=== PATIENT | male | born 1965 | race Caucasian/White ===

== ENCOUNTER 2018-05-09 20:06 | Inpatient (IN) ==
[2018-05-09] MEDS ORDERED: Labetalol HCl Inj 100 MG/20 ML Vial IV.PUSH ONE ×2 (21:31→23:12)
[2018-05-09] MEDS ORDERED: Labetalol HCl Inj 20 MG/4 ML Vial ONE (21:37)
--- NOTE | 2018-05-09 21:39 | ED ---
HPI General Chief complaint: Hypertension Stated complaint: Back pain, difficulty breathing Time Seen by Provider: 05/09/18 21:20 Source: patient Mode of arrival: ambulatory Limitations: no limitations History of Present Illness HPI narrative: 53-year-old male here for evaluation of elevated blood pressure, bilateral flank pain, abdominal pain. The patient reports that the symptoms have been going on since 05/04/18. He states that on that date [facility] and was reportedly told that he has an aortic aneurysm. He tells me that he left AMA yesterday because he thought that they could not get his blood pressure control and that he was "falling through the cracks." His symptoms have persisted and have been constant. His pain is described as sharp and radiates from his bilateral flank region to his bilateral groin region. He feels as though he needs to urinate frequently, however denies dysuria or hematuria. No urinary incontinence or bowel incontinence or retention. No fevers or chills. No paresthesias or motor deficits. He smokes about 3/4 of a pack of cigarettes daily, smokes marijuana occasionally, denies any other illicit drugs. States that he has not had any alcohol in the last 4 years. Related Data Home Medications Medication Instructions Recorded Confirmed No Known Home Medications 05/09/18 05/09/18 Allergies Allergy/AdvReac Type Severity Reaction Status Date / Time No Known Allergies Allergy Verified 05/09/18 21:00 Review of Systems ROS: all other systems reviewed are negative FOR[facility]LY [facility] Medical History Medical History High cholesterol (Acute) Hypertension (Acute) Patient denies medical problems (Acute) Surgical History Surgical History H/O inguinal hernia repair (Acute) Social History Social History Substance History: No History of Abuse Second Hand Smoke Exposure: No Smoking Status: Current every day smoker Tobacco Type: Cigarettes How Often Do You Have a Drink Containing Alcohol: Never Recent Travel in [facility] within the Last 8 Weeks: No Recent Out of Country Travel within the Last 8 Weeks: No Immunization History Tetanus Immunization: Unsure Exam Narrative Exam Narrative: GENERAL: Well-developed, well-nourished, awake, alert, resting comfortably on stretcher watching TV, no apparent distress. SKIN: Focused skin assessment warm/dry. No rash. HEAD: Atraumatic. Normocephalic. EYES: Pupils equal and round. No scleral icterus. No injection or drainage. ENT: Mucous membranes pink and moist. NECK: Trachea midline. No JVD. CARDIOVASCULAR: Regular rate and rhythm. Distal pulses brisk and equal bilaterally. RESPIRATORY: No accessory muscle use. Clear to auscultation. Breath sounds equal bilaterally. GASTROINTESTINAL: Abdomen soft, nondistended. Mild suprapubic and lower abdominal tenderness without peritoneal signs. Rest of abdomen is soft and nontender. Normal bowel sounds. No hernias. MUSCULOSKELETAL: No obvious deformities. No clubbing. No cyanosis. No edema. Mild CVA tenderness bilaterally. No midline vertebral step-off or tenderness. NEUROLOGICAL: Awake and alert. No obvious cranial nerve deficits. Motor grossly within normal limits. Normal speech. PSYCHIATRIC: Appropriate mood and affect; insight and judgment normal. Course Initial Documented Vital Signs Temperature 97.8 F 05/09/18 20:43 Pulse Rate 78 05/09/18 20:43 Respiratory Rate 17 05/09/18 20:43 Blood Pressure 227/103 H 05/09/18 20:43 Pulse Oximetry 97 05/09/18 20:43 Last Documented Vital Signs Temperature 97.8 F 05/09/18 20:43 Pulse Rate 68 05/09/18 23:16 Respiratory Rate 18 05/09/18 23:16 Blood Pressure 154/82 H 05/09/18 23:28 Pulse Oximetry 99 05/09/18 23:16 Critical Care Time Critical Care Time: Yes Total Critical Care Time: 35 Attestation: Aggregate critical care time was 35 minutes. Time to perform other separately billable procedures was not included in the critical care time. My time did not include minutes spent treating any other patients simultaneously or on activities that did not directly contribute to the patient's treatment. The services I provided to this patient were to treat and/or prevent clinically significant deterioration that could result in: , permanent disability, aortic rupture, hemorrhagic shock I provided critical care services requiring my management, as noted below: Chart data review, documentation time, medication orders and management, vital sign assessments/reviewing monitor data, ordering and reviewing lab tests, ordering and interpreting/reviewing x-rays and diagnostic studies, care of the patient and discussion of the patient with the admitting physicians. Medical Decision Making MDM Narrative Medical decision making narrative: Patient presents with a blood pressure of 237 /108 with a heart rate of 78. Basic labs reviewed. 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 angios the chest revealed a type B aortic dissection in the arch distal to the left subclavian artery extending inferiorly and into the abdominal aorta and a mild aneurysm involving the ascending aorta and aortic arch. According to these records, the patient was evaluated by cardiothoracic surgery, and medical management was advised. Unfortunately the patient decided to leave the facility AGAINST MEDICAL ADVICE yesterday, and therefore does not have antihypertensive medications. He was given 10 mg of IV labetalol shortly after I initially evaluated him, and repeat blood pressure is 189/95, and his heart rate is 70. Patient was given a second dose of 10 mg of IV labetalol and his repeat blood pressure is 154/82 with a heart rate of 65. I discussed the case with garment sewer hand Dr. Aceves who will admit the patient to the ICU. He would like me to repeat CT thoracic and abdominal aorta here. The patient was made aware of this plan and has agreed to not leave [place] as his diagnosis is life-threatening. Medical Screen Exam Complete: Yes Emergency Medical Condition: Yes Differential Diagnosis Differential Diagnosis: Uncontrolled hypertension, hypertensive crisis, dissection, AAA, nephrolithiasis, ureterolithiasis, pyelonephritis, renal artery infarct, colitis Lab Data Result diagrams: 05/09/18 21:39 05/09/18 21:39 Lab Results 05/09/18 05/09/18 05/09/18 Range/Units 21:39 21:39 21:39 WBC 9.4 (4.0-11.0) th/mm3 RBC 3.91 L (4.50-5.90) mil/mm3 Hgb 13.5 (13.0-17.0) gm/dL Hct 37.2 L (39.0-51.0) % MCV 95.2 (80.0-100.0) fL MCH 34.5 H (27.0-34.0) pg MCHC 36.2 H (32.0-36.0) % RDW 13.5 (11.6-17.2) % Plt Count 397 (150-450) th/mm3 MPV 7.8 (7.0-11.0) fL Prelim Diff (Auto) Slide review pending Neut % (Auto) 63.8 (16.0-70.0) % Lymph % (Auto) 16.8 (9.0-44.0) % [place] % (Auto) 12.1 H (0.0-8.0) % Eos % (Auto) 6.7 H (0.0-4.0) % Baso % (Auto) 0.6 (0.0-2.0) % Neut # (Auto) 6.0 (1.8-7.7) th/mm3 Lymph # (Auto) 1.6 (1.0-4.8) th/mm3 [place] # (Auto) 1.1 H (0.0-0.9) th/mm3 Eos # (Auto) 0.6 H (0.0-0.4) th/mm3 Baso # (Auto) 0.1 (0.0-0.2) th/mm3 Differential Comment . PT 10.3 (9.8-11.6) sec INR 1.0 Ratio APTT 31.6 (23.4-31.7) sec Sodium 136 (136-145) meq/L Potassium 3.5 (3.5-5.1) meq/L Chloride 102 (98-107) meq/L Carbon Dioxide 22.9 (21.0-32.0) meq/L Anion Gap 11 (5-15) meq/L BUN 11 (7-18) mg/dL Creatinine 1.02 (0.60-1.30) mg/dL Estimated GFR 76 L (>89) mL/min Random Glucose 72 L (74-106) mg/dL Calcium 8.8 (8.5-10.1) mg/dL Total Bilirubin 0.6 (0.2-1.0) mg/dL AST 15 (15-37) U/L ALT 28 (12-78) U/L Alkaline Phosphatase 80 (45-117) U/L Total Creatine Kinase 194 (39-308) U/L CK-MB (CK-2) 4.5 H (0.5-3.6) ng/mL Troponin I Less than 0.02 L (0.02-0.05) ng/mL Total Protein 7.7 (6.4-8.2) g/dL Albumin 3.5 (3.4-5.0) g/dL Lipase 66 L (73-393) U/L Urine Color (Yellw/Straw) Urine Clarity (Clear) Urine pH (5.0-8.5) Ur Specific [place] (1.002-1.035) Urine Protein (Neg-Trace) mg/dL Urine Glucose (UA) (Negative) mg/dL Urine Ketones (Negative) mg/dL Urine Occult Blood (Negative) Urine Nitrate (Negative) Urine Bilirubin (Negative) Urine Urobilinogen (Less than 2) mg/dL Ur Leukocyte Esterase (Negative) Urine RBC (0-3) /hpf Urine WBC (0-5) /hpf Micro UA Comment Ur Microscopic Review Urine Culture Comments Urine Opiates Screen (Neg) Ur Barbiturates Screen (Neg) Ur Amphetamines Screen (Neg) U Benzodiazepines Scrn (Neg) Urine Cocaine Screen (Neg) U Cannabinoids Screen (Neg) Serum Alcohol Less than 3 (0-5) mg/dL 05/09/18 05/09/18 Range/Units 21:39 21:39 WBC (4.0-11.0) th/mm3 RBC (4.50-5.90) mil/mm3 Hgb (13.0-17.0) gm/dL Hct (39.0-51.0) % MCV (80.0-100.0) fL MCH (27.0-34.0) pg MCHC (32.0-36.0) % RDW (11.6-17.2) % Plt Count (150-450) th/mm3 MPV (7.0-11.0) fL Prelim Diff (Auto) Neut % (Auto) (16.0-70.0) % Lymph % (Auto) (9.0-44.0) % [place] % (Auto) (0.0-8.0) % Eos % (Auto) (0.0-4.0) % Baso % (Auto) (0.0-2.0) % Neut # (Auto) (1.8-7.7) th/mm3 Lymph # (Auto) (1.0-4.8) th/mm3 [place] # (Auto) (0.0-0.9) th/mm3 Eos # (Auto) (0.0-0.4) th/mm3 Baso # (Auto) (0.0-0.2) th/mm3 Differential Comment PT (9.8-11.6) sec INR Ratio APTT (23.4-31.7) sec Sodium (136-145) meq/L Potassium (3.5-5.1) meq/L Chloride (98-107) meq/L Carbon Dioxide (21.0-32.0) meq/L Anion Gap (5-15) meq/L BUN (7-18) mg/dL Creatinine (0.60-1.30) mg/dL Estimated GFR (>89) mL/min Random Glucose (74-106) mg/dL Calcium (8.5-10.1) mg/dL Total Bilirubin (0.2-1.0) mg/dL AST (15-37) U/L ALT (12-78) U/L Alkaline Phosphatase (45-117) U/L Total Creatine Kinase (39-308) U/L CK-MB (CK-2) (0.5-3.6) ng/mL Troponin I (0.02-0.05) ng/mL Total Protein (6.4-8.2) g/dL Albumin (3.4-5.0) g/dL Lipase (73-393) U/L Urine Color Yellow (Yellw/Straw) Urine Clarity Clear (Clear) Urine pH 6.0 (5.0-8.5) Ur Specific [place] 1.012 (1.002-1.035) Urine Protein Negative (Neg-Trace) mg/dL Urine Glucose (UA) Negative (Negative) mg/dL Urine Ketones Trace H (Negative) mg/dL Urine Occult Blood Small H (Negative) Urine Nitrate Negative (Negative) Urine Bilirubin Negative (Negative) Urine Urobilinogen Less than 2 (Less than 2) mg/dL Ur Leukocyte Esterase Negative (Negative) Urine RBC 1 (0-3) /hpf Urine WBC 1 (0-5) /hpf Micro UA Comment Culture not ind Ur Microscopic Review Not Reportable Urine Culture Comments Culture not ind Urine Opiates Screen Neg (Neg) Ur Barbiturates Screen Neg (Neg) Ur Amphetamines Screen Neg (Neg) U Benzodiazepines Scrn Neg (Neg) Urine Cocaine Screen Neg (Neg) U Cannabinoids Screen Pos H (Neg) Serum Alcohol (0-5) mg/dL Discharge Plan Discharge Disposition Patient Disposition: ED Admit(ED Internal Use Only) Discharge Condition Condition: Fair Discharge Order Discharge Orders: ED Use Only Admit Order (Routine); Ordered 05/09/18 Ordered By: Gui Almendarez Discharge Details Diagnosis: Hypertensive crisis, Aortic dissection Physicians Team ED Provider: Gui Almendarez Primary Care Provider: Primary Care Physici,No Rxs /Orders / Referrals /Forms Prescriptions: No Action No Known Home Medications RF: 0 Discharge Interventions Interventions: Vital Signs Last Done: 05/09/18 21:01 Status ED Status: With Doctor
[2018-05-09 22:09] LABS: Baso # (Auto) 0.1 th/mm3 (0.0-0.2); Baso % (Auto) 0.6 % (0.0-2.0); Eos # (Auto) 0.6 th/mm3 (0.0-0.4); Eos % (Auto) 6.7 % (0.0-4.0); Hematocrit 37.2 % (39.0-51.0); Hemoglobin 13.5 gm/dL (13.0-17.0); Lymph # (Auto) 1.6 th/mm3 (1.0-4.8); Lymph % (Auto) 16.8 % (9.0-44.0); Mean Corpuscular Hemoglobin 34.5 pg (27.0-34.0); Mean Corpuscular Volume 95.2 fL (80.0-100.0); Mean Platelet Volume 7.8 fL (7.0-11.0); Mono # (Auto) 1.1 th/mm3 (0.0-0.9); Mono % (Auto) 12.1 % (0.0-8.0); Neut % (Auto) 63.8 % (16.0-70.0); Platelet Count 397 th/mm3 (150-450); Red Blood Count 3.91 mil/mm3 (4.50-5.90); Red Cell Distribution Width 13.5 % (11.6-17.2); White Blood Count 9.4 th/mm3 (4.0-11.0)
[2018-05-09 22:10] LABS: Bilirubin,Urine Negative (Negative); Clarity,Urine Clear (Clear); Color,Urine Yellow (Yellw/Straw); Glucose,Urine (UA) Negative (Negative); Leukocyte Esterase,Urine Negative (Negative); Nitrite,Urine Negative (Negative); Specific Gravity,Urine 1.012 (1.002-1.035)
[2018-05-09 22:15] LABS: Mean Corpuscular HGB Conc 36.2 % (32.0-36.0)
[2018-05-09 22:16] LABS: Amphetamine Screen,Urine Neg (Neg); Barbiturate Screen,Urine Neg (Neg); Cannabinoid Screen,Urine Pos (Neg); Cocaine Screen,Urine Neg (Neg)
[2018-05-09 22:17] LABS: Opiate Screen,Urine Neg (Neg)
[2018-05-09 22:20] LABS: Albumin 3.5 g/dL (3.4-5.0); Anion Gap 11 meq/L (5-15); Aspartate Aminotransferase 15 U/L (15-37); Blood Urea Nitrogen 11 mg/dL (7-18); Calcium 8.8 mg/dL (8.5-10.1); Carbon Dioxide 22.9 meq/L (21.0-32.0); Chloride 102 meq/L (98-107); Glomerular Filtration Rate 76 mL/min (>89); Glucose,Random 72 mg/dL (74-106); Lipase 66 U/L (73-393); Potassium 3.5 meq/L (3.5-5.1); Sodium 136 meq/L (136-145)
[2018-05-09 22:21] LABS: Alanine Aminotransferase 28 U/L (12-78)
[2018-05-09 22:25] LABS: Alkaline Phosphatase 80 U/L (45-117); Creatine Kinase 194 U/L (39-308); Total Protein 7.7 g/dL (6.4-8.2)
[2018-05-09 22:31] LABS: Activated Partial Thrombo Time 31.6 sec (23.4-31.7); Prothrombin Time 10.3 sec (9.8-11.6)
[2018-05-09 22:51] LABS: Creatine Kinase MB 4.5 ng/mL (0.5-3.6)
[2018-05-09] MEDS ORDERED: Bisacodyl 10 MG Supp RECTAL PRN (23:27)
[2018-05-09] MEDS ORDERED: fentaNYL Citrate Inj 100 MCG/2 ML Ampul IV PUSH PRN (23:27)
[2018-05-09] MEDS ORDERED: Labetalol HCl Inj 20 MG/4 ML Vial IV.PUSH PRN (23:32)
[2018-05-09 23:35] LABS: Platelet Estimate Normal (Normal)
[2018-05-09 23:36] LABS: Platelet Morphology Normal (Normal)
[2018-05-09] MEDS ORDERED: Potassium Chloride Liq 20 MEQ/15 ML UDC PO PRN ×2 (23:46)
[2018-05-09] MEDS ORDERED: Potassium Chlor 40 mEq Premix 40 MEQ/100 ML PIGGYBACK IV.SIG PRN ×2 (23:46)
[2018-05-09] MEDS ORDERED: Sodium Phosphate Inj 30 MMOL in Sodium Chlor 0.9% Inj 250 ML IV.SIG PRN (23:46)
[2018-05-09] MEDS ORDERED: Potassium Phosphate Inj 30 MMOL in Sodium Chlor 0.9% Inj 250 ML IV.SIG PRN (23:46)
[2018-05-09] MEDS ORDERED: Potassium Phosphate 500 MG Soluble Tablet PO PRN ×2 (23:46)
[2018-05-09] MEDS ORDERED: Magnesium Oxide 400 MG Tablet PO PRN (23:46)
[2018-05-09] MEDS ORDERED: Potassium Chlor 20 mEq Premix 20 MEQ/100 ML PIGGYBACK IV.SIG PRN ×2 (23:46)
[2018-05-09] MEDS ORDERED: Magnesium Sulfate Inj 2 GM in Sodium Chlor 0.9% Inj 96 ML IV.SIG PRN (23:46)
[2018-05-09] MEDS ORDERED: Magnesium Sulfate Inj 4 GM in Sodium Chlor 0.9% Inj 92 ML IV.SIG PRN (23:46)
--- NOTE | 2018-05-09 23:47 | P.HPCC ---
History of Present Illness Service: Critical care Primary Care Physician: No Primary Care Physician Chief Complaint: Uncontrolled hypertension History of Present Illness: Patient is 53-year-old male here with past medical history significant for hypertension, dyslipidemia recently diagnosed type B aortic dissection (on ) who presented to the emergency department today for evaluation of elevated blood pressure, and back pain. The patient stated that he was admitted to the [facility] from 05/04/18 for similar complaints and had been diagnosed with hypertensive emergency and type B dissection of the aorta. Records from [facility] reviewed, CT of the chest abdomen pelvis showed aortic dissection involving the thoracic and abdominal aorta extending from distal arch, distal to the origin of left subclavian artery to the left common iliac artery. CT surgery was consulted at [facility] and recommended medical management. He left AMA yesterday because in his opinion his blood pressure and pain was not adequately controlled. Initial blood pressures in the ED was 227/103. Patient was given 20 mg IV labetalol. Because of uncontrolled hypertension and recent type B dissection critical care medicine was requested to admit the patient. I evaluated the patient in the ED. His blood pressure is slightly better controlled however patient appears in obvious discomfort due to pain. He will be admitted to the ICU started on Cardene infusion along with PRN and scheduled labetalol. Cardiothoracic surgery will be reconsulted after getting aortic CT angiogram repeated. - Diagnosis (1) Dissecting aneurysm of thoracic aorta, Lam type B (2) Hypertensive emergency (3) Hypertension (4) Dyslipidemia Inpatient Certification: I certify that the inpatient services were ordered in accordance with Medicare regulations governing the order. This includes certification that hospital inpatient services are reasonable and necessary and in the case of services not specified as inpatient-only under 42 CFR 419.22(n), that they are appropriately provided as inpatient services in accordance to with the 2-midnight benchmark under 43 CFR 412.3(e) Estimated Total Length of Stay (Days): 5 Plans for Post Hospital Care: Not yet determined Review of Systems All other systems reviewed negative except as stated [facility] - History History Provided By: Patient - Medical History Medical History: Medical History (Last Reviewed 05/10/18 @ 01:44 by Shabnam Aceves MD) High cholesterol Hypertension Patient denies medical problems - Surgical History Surgical History: Surgical History (Last Reviewed 05/09/18 @ 23:50 by Shabnam Aceves MD) H/O inguinal hernia repair - Tobacco History Second Hand Smoke Exposure: No Tobacco Use In Past 30 Days: Yes Smoking Status: Current every day smoker Tobacco Type: Cigarettes - Alcohol History How Often Do You Have a Drink Containing Alcohol: Never - Substance Use History Substance History: No History of Abuse - Travel History Recent Travel in the [place] Within the Last 8 Weeks: No Recent Travel Out of the Country Within the Last 8 Weeks: No - Immunization History Tetanus Immunization: Unsure Medications and Allergies Active Medications: Active Medications Hydrocodone Bitart/Acetaminophen ([place] 7.5/325) 2 tab PO Q6H PRN PRN Reason: pain 5-10 Al Hydroxide/Mg Hydroxide (Milk Of Magnesia Liq) 30 ml PO Q12H PRN PRN Reason: Mild Constipation Albuterol (Duoneb Neb (Prn)) 1 ampul NEB Q2HR NEB PRN PRN Reason: WHEEZING Bisacodyl (Dulcolax Supp) 10 mg RECTAL DAILY PRN PRN Reason: SEVERE CONSITIPATION Chlorhexidine Gluconate (Chlorhexidine 2% Cloth) 3 pack TOPICAL DAILY@0400 VA Stop: 05/15/18 03:59 Chlorhexidine Gluconate (Chlorhexidine 2% Cloth) 3 pack TOPICAL DAILY@0400 PRN PRN Reason: Extra cloth needed Stop: 05/15/18 03:59 Famotidine (Pepcid) 20 mg PO BID VA Famotidine (Pepcid Pf Inj) 20 mg IV.PUSH Q12HR VA Fentanyl Citrate (Fentanyl Inj) 50 mcg IV PUSH Q1H PRN PRN Reason: Pain scale 6-10, &/or sedation Nicardipine HCl 25 mg/ Sodium (Chloride) 250 mls @ 50 mls/hr IV.CONT TITRATE PRN; Protocol PRN Reason: Per Protocol Magnesium Sulfate 4 gm/ Sodium (Chloride) 100 mls @ 50 mls/hr IV.SIG UNSCH PRN PRN Reason: For Magnesium 0.9 - 1.1 mg/dL Magnesium Sulfate 2 gm/ Sodium (Chloride) 100 mls @ 50 mls/hr IV.SIG UNSCH PRN PRN Reason: For Magnesium 1.2 - 1.6 mg/dL Potassium Chloride (Kcl 40 Meq Premix Inj) 40 meq in 100 mls @ 25 mls/hr IV.SIG Q2H PRN PRN Reason: For Potassium 2.8 - 3.2 mEq/L Potassium Chloride (Kcl 20 Meq Premix Inj) 20 meq in 100 mls @ 50 mls/hr IV.SIG Q2H PRN PRN Reason: For Potassium 3.3 - 3.5 mEq/L Potassium Chloride (Kcl 40 Meq Premix Inj) 40 meq in 100 mls @ 25 mls/hr IV.SIG UNSCH PRN PRN Reason: For Potassium 3.3 - 3.5 mEq/L Labetalol HCl (Trandate Inj) 20 mg IV.PUSH Q2H PRN PRN Reason: SBP >160 Labetalol HCl (Trandate) 100 mg PO BID VA Lactulose (Lactulose Liq) 30 ml PO DAILY PRN PRN Reason: SEVERE CONSITIPATION Magnesium Oxide (Mag-Ox) 800 mg PO UNSCH PRN PRN Reason: For Magnesium 1.2 - 1.6 mg/dL Senna/Docusate Sodium (Rose-Colace) 1 tab PO BID VA Sennosides (Senokot) 17.2 mg PO Q12H PRN PRN Reason: Moderate Constipation Sodium Chloride (Ns Flush) 2 ml IV.FLUSH UNSCH PRN PRN Reason: FLUSH AFTER USING IV ACCESS Sodium Chloride (Ns Flush) 2 ml IV.FLUSH BID VA Sodium Chloride (Ns Flush) 2 ml IV.FLUSH PRN PRN PRN Reason: FLUSH AFTER USING IV ACCESS Allergies Allergy/AdvReac Type Severity Reaction Status Date / Time No Known Allergies Allergy Verified 05/09/18 21:00 Home Medications Medication Instructions Recorded Confirmed Type No Known Home Medications 05/09/18 05/09/18 History Results - Labs CBC & Chem 7: 05/09/18 21:39 05/09/18 21:39 Labs: Short CBC 05/09/18 Range/Units 21:39 WBC 9.4 (4.0-11.0) th/mm3 Hgb 13.5 (13.0-17.0) gm/dL Hct 37.2 L (39.0-51.0) % Plt Count 397 (150-450) th/mm3 BMP 05/09/18 21:39 Sodium 136 Potassium 3.5 Chloride 102 Carbon Dioxide 22.9 BUN 11 Creatinine 1.02 Calcium 8.8 Cardiac Enzymes 05/09/18 Range/Units 21:39 Total Creatine Kinase 194 (39-308) U/L CK-MB (CK-2) 4.5 H (0.5-3.6) ng/mL Troponin I Less than 0.02 L (0.02-0.05) ng/mL Liver Function 05/09/18 Range/Units 21:39 Total Bilirubin 0.6 (0.2-1.0) mg/dL AST 15 (15-37) U/L ALT 28 (12-78) U/L Alkaline Phosphatase 80 (45-117) U/L Albumin 3.5 (3.4-5.0) g/dL Urine 05/09/18 Range/Units 21:39 Urine Color Yellow (Yellw/Straw) Urine Clarity Clear (Clear) Urine pH 6.0 (5.0-8.5) Ur Specific [place] 1.012 (1.002-1.035) Urine Protein Negative (Neg-Trace) mg/dL Urine Glucose (UA) Negative (Negative) mg/dL Exam Vital signs: Vital Signs 05/09/18 20:43 05/09/18 21:01 05/09/18 21:42 Temperature 97.8 F Pulse Rate 78 78 68 Respiratory Rate 17 18 18 Blood Pressure 227/103 H 219/101 H 191/101 H Pulse Oximetry 97 97 99 05/09/18 22:17 05/09/18 22:25 05/09/18 22:55 Temperature Pulse Rate 68 70 Respiratory Rate 18 18 Blood Pressure 177/88 H 191/92 H 212/102 H Pulse Oximetry 98 98 05/09/18 23:16 05/09/18 23:28 Temperature Pulse Rate 68 Respiratory Rate 18 Blood Pressure 163/81 H 154/82 H Pulse Oximetry 99 Narrative: GENERAL: Well-developed, well-nourished, awake, alert, moderate distress due to back pain SKIN: Warm and dry HEAD: Atraumatic. Normocephalic. EYES: Pupils equal and round. No scleral icterus. No injection or drainage. ENT: Mucous membranes pink and moist. NECK: Trachea midline. No JVD. CARDIOVASCULAR: Regular rate and rhythm. Distal pulses equal bilaterally. No murmurs RESPIRATORY: No accessory muscle use. Clear to auscultation. GASTROINTESTINAL: Abdomen soft, nondistended. No organomegaly MUSCULOSKELETAL: No obvious deformities. No clubbing. No cyanosis. No edema. NEUROLOGICAL: Awake and alert. No obvious cranial nerve deficits. Motor grossly within normal limits. Normal speech. Septic Shock Reassessment Septic shock perfusion: reassessment completed Caprini VTE Risk Assessment Caprini VTE Risk Assessment: Moderate/High Risk (score >= 2) VTE Pharmacological Exception Reason: High risk for bleeding Caprini Risk Assessment Model: Point Value = 1 Point Value = 2 Point Value = 3 Point Value = 5 Age 41-60 Minor surgery BMI > 25 kg/m2 Swollen legs Varicose veins or History of unexplained or recurrent spontaneous Oral contraceptives or hormone replacement Sepsis (< 1 month) Serious lung disease, including pneumonia (< 1 month) Abnormal pulmonary function Acute myocardial infarction Congestive heart failure (< 1 month) History of inflammatory bowel disease Medical patient at bed rest Age 61-74 Arthroscopic surgery Major open surgery (> 45 min) Laparoscopic surgery (> 45 min) Malignancy Confined to bed (> 72 hours) Immobilizing plaster cast Central venous access Age >= 75 History of VTE Family history of VTE Factor V Leiden Prothrombin [id number] Lupus anticoagulant Anticardiolipin antibodies Elevated serum homocysteine Heparin-induced thrombocytopenia Other congenital or acquired thrombophilia Stroke (< 1 month) Elective arthroplasty Hip, pelvis, or leg fracture Acute spinal cord injury (< 1 month) Prophylaxis Regimen: Total Risk Factor Score Risk Level Prophylaxis Regimen 0-1 Low Early ambulation 2 Moderate Order ONE of the following: *Sequential Compression Device (SCD) *Heparin 5000 units SQ BID 3-4 Higher Order ONE of the following medications: *Heparin 5000 units SQ TID *Enoxaparin/Lovenox 40 mg SQ daily (WT < 150 kg, CrCl > 30 mL/min) *Enoxaparin/Lovenox 30 mg SQ daily (WT < 150 kg, CrCl > 10-29 mL/min) *Enoxaparin/Lovenox 30 mg SQ BID (WT < 150 kg, CrCl > 30 mL/min) AND/OR *Sequential Compression Device (SCD) 5 or more Highest Order ONE of the following medications: *Heparin 5000 units SQ TID (Preferred with Epidurals) *Enoxaparin/Lovenox 40 mg SQ daily (WT < 150 kg, CrCl > 30 mL/min) *Enoxaparin/Lovenox 30 mg SQ daily (WT < 150 kg, CrCl > 10-29 mL/min) *Enoxaparin/Lovenox 30 mg SQ BID (WT < 150 kg, CrCl > 30 mL/min) AND *Sequential Compression Device (SCD) Assessment and Plan - Problem List (1) Dissecting aneurysm of thoracic aorta, Lam type B Code(s): I71.01 - Dissection of thoracic aorta Status: Acute (2) Hypertensive emergency Code(s): I16.1 - Hypertensive emergency Status: Acute (3) Hypertension Code(s): I10 - Essential (primary) hypertension Status: Chronic (4) Dyslipidemia Code(s): E78.5 - Hyperlipidemia, unspecified Status: Chronic - Assessment and Plan Plan: NEURO: -Pain controlled with [place] and IV fentanyl -Check urine drug screen RESP: -DuoNeb every 6 hours as needed -Tobacco cessation counseling CV: Hypertensive emergency Type B aortic dissection History of hypertension History of dyslipidemia -Normal saline IV fluids 75 mL/h -CT surgery consult -Repeat CT angiogram of the aorta -Previous CT angiogram showed type B dissection involving descending aorta distal to the arch extending into the abdominal aorta -Cardene infusion to keep systolic blood pressure less than 140/90 -Labetalol 100 mg p.o. twice daily, IV labetalol PRN for SBP more than 150 -Check lipid profile GI: -N.p.o., IV famotidine : -Monitor renal function closely. ID: -No indication for antibiotics at this HEME: -Monitor CBC, coags ENDO: -Electrolyte replacement per protocol PROPH: -Bilateral lower extremity SCDs. IV famotidine. Avoid chemical DVT prophylaxis LINES: -Utilize peripheral IVs, central line if needed CC time 37 min
--- NOTE | 2018-05-10 00:44 | CT ---
EXAM DATE: 05/10/2018 12:27 AM EST AGE/SEX: 53 years / Male INDICATIONS: Chest pain; possible dissection. CLINICAL DATA: This is the patient's initial encounter. Patient reports that signs and symptoms have been present for 1 day and indicates a pain score of 8/10. MEDICAL/SURGICAL HISTORY: Hypertension. Hypercholesterolemia. Inguinal hernia repair. RADIATION DOSE: 9.09 CTDI (mGy) COMPARISON: No prior exams available for comparison. TECHNIQUE: Volumetric scanning was performed using a multi-row detector CT scanner during bolus infu yfn of 98 ml Omnipaque 350 (iohexol) nonionic water-soluble contrast as a single exam dose. The da ta was post processed with a variety of visualization algorithms including full volume maximum intens ity projection, multi-planar sliding thin slab reformation, curved planar reformation, and surface re ndering techniques. Using automated exposure control and adjustment of the mA and/or kV according to patient size, radiation dose was kept as low as reasonably achievable to obtain optimal diagnostic q uality images. DICOM format image data is available electronically for review and comparison. FINDINGS: The descending thoracic aorta is normal in caliber and appearance. Classical three-vessel arch branch ing anatomy is present in the arch vessels are intact and unremarkable. Aortic dissection begins just beyond the origin of the left subclavian artery. The true lumen channel is fairly diminutive in the proximal descending thoracic region. In the abdomen, the celiac, SMA and renal arteries arise from th e true lumen. There is moderate proximal stenotic disease in the renal arteries bilaterally. The aort ic true lumen becomes quite small in the distal abdominal aorta and the LUBNA arises from the false lum en. The right iliac arises from the true lumen and continues widely patent through the right pelvis. On the left side, the true lumen occludes in the mid common region with flow continuing into the inte rnal and external iliacs at false lumen opacity. There is no evidence of aneurysmal dilatation. Elsewhere on the exam, note is made of mild hepatic steatosis. Bilateral renal cysts are present. The re is diverticular involvement of the colon. Fat-containing inguinal hernias present bilaterally. CONCLUSION: [place] type B aortic dissection with characteristics as described in detail above.. Electronically signed by: Ketan Brown MD Board Certified Radiologist 05/10/2018 12:42 AM EST
[2018-05-10] MEDS: niCARdipine Inj 25 MG in Sodium Chlor 0.9% Inj 240 ML IV.CONT PRN ×5 (00:49→19:43)
[2018-05-10] MEDS ORDERED: Chlorhexidine Gluconate 2% 1 Pack (2 Cloths) TOPICAL PRN (04:00)
[2018-05-10] MEDS: Chlorhexidine Gluconate 2% 1 Pack (2 Cloths) TOPICAL SCH (04:00)
[2018-05-10 04:53] LABS: Baso # (Auto) 0.1 th/mm3 (0.0-0.2); Baso % (Auto) 0.7 % (0.0-2.0); Eos # (Auto) 0.6 th/mm3 (0.0-0.4); Eos % (Auto) 6.7 % (0.0-4.0); Hematocrit 34.9 % (39.0-51.0); Hemoglobin 12.5 gm/dL (13.0-17.0); Lymph # (Auto) 1.4 th/mm3 (1.0-4.8); Lymph % (Auto) 16.6 % (9.0-44.0); Mean Corpuscular HGB Conc 35.7 % (32.0-36.0); Mean Corpuscular Volume 95.1 fL (80.0-100.0); Mean Platelet Volume 7.6 fL (7.0-11.0); Mono % (Auto) 12.8 % (0.0-8.0); Neut # (Auto) 5.2 th/mm3 (1.8-7.7); Neut % (Auto) 63.2 % (16.0-70.0); Platelet Count 362 th/mm3 (150-450); Red Blood Count 3.67 mil/mm3 (4.50-5.90); Red Cell Distribution Width 13.2 % (11.6-17.2); White Blood Count 8.2 th/mm3 (4.0-11.0)
[2018-05-10 05:41] LABS: Alanine Aminotransferase 26 U/L (12-78); Albumin 3.2 g/dL (3.4-5.0); Anion Gap 6 meq/L (5-15); Aspartate Aminotransferase 15 U/L (15-37); Blood Urea Nitrogen 13 mg/dL (7-18); Calcium 8.4 mg/dL (8.5-10.1); Carbon Dioxide 27.9 meq/L (21.0-32.0); Chloride 103 meq/L (98-107); Glomerular Filtration Rate 63 mL/min (>89); Glucose,Random 83 mg/dL (74-106); Magnesium 2.2 mg/dL (1.5-2.5); Potassium 3.4 meq/L (3.5-5.1); Sodium 137 meq/L (136-145)
[2018-05-10 05:43] LABS: Alkaline Phosphatase 76 U/L (45-117); Total Protein 7.1 g/dL (6.4-8.2)
[2018-05-10] MEDS ORDERED: Labetalol 100 MG Tablet PO SCH ×2 (09:00→21:00)
[2018-05-10] MEDS ORDERED: Famotidine PF Inj 20 MG/2 ML Vial IV.PUSH SCH (09:00)
[2018-05-10] MEDS ORDERED: Famotidine 20 MG Tablet PO SCH (09:00)
[2018-05-10] MEDS: Senna/Docusate Sodium 8.6/50 MG Tablet PO SCH ×2 (09:31→21:30)
--- NOTE | 2018-05-10 10:35 | P.PNCC ---
Subjective Subjective Remarks/Hospital Course: Patient is 53-year-old male here with past medical history significant for hypertension, dyslipidemia recently diagnosed type B aortic dissection (on ) who presented to the emergency department today for evaluation of elevated blood pressure, and back pain. The patient stated that he was admitted to the [facility] from 05/04/18 for similar complaints and had been diagnosed with hypertensive emergency and type B dissection of the aorta. Records from [facility] reviewed, CT of the chest abdomen pelvis showed aortic dissection involving the thoracic and abdominal aorta extending from distal arch, distal to the origin of left subclavian artery to the left common iliac artery. CT surgery was consulted at [facility] and recommended medical management. He left AMA yesterday because in his opinion his blood pressure and pain was not adequately controlled. Initial blood pressures in the ED was 227/103. Patient was given 20 mg IV labetalol. Because of uncontrolled hypertension and recent type B dissection critical care medicine was requested to admit the patient. I evaluated the patient in the ED. His blood pressure is slightly better controlled however patient appears in obvious discomfort due to pain. He will be admitted to the ICU started on Cardene infusion along with PRN and scheduled labetalol. Cardiothoracic surgery will be reconsulted after getting aortic CT angiogram repeated. Subjective 05/10: Patient resting in bed in no acute distress. States his "back pain" is much improved. Blood pressure much improved on nicardipine drip. Requesting diet. Objective Vital Signs / I&O: Vital Signs 05/09/18 20:43 05/09/18 21:01 05/09/18 21:42 Temperature 97.8 F Pulse Rate 78 78 68 Respiratory Rate 17 18 18 Blood Pressure 227/103 H 219/101 H 191/101 H Pulse Oximetry 97 97 99 05/09/18 22:17 05/09/18 22:25 05/09/18 22:55 Temperature Pulse Rate 68 70 Respiratory Rate 18 18 Blood Pressure 177/88 H 191/92 H 212/102 H Pulse Oximetry 98 98 05/09/18 23:16 05/09/18 23:28 05/09/18 23:57 Temperature Pulse Rate 68 69 Respiratory Rate 18 18 Blood Pressure 163/81 H 154/82 H 161/84 H Pulse Oximetry 99 98 05/10/18 00:27 05/10/18 01:00 05/10/18 03:00 Temperature 98.5 F 98.1 F Pulse Rate 68 62 Respiratory Rate 20 16 16 Blood Pressure 165/100 H 143/72 H Pulse Oximetry 95 95 05/10/18 04:00 05/10/18 09:37 Temperature Pulse Rate Respiratory Rate 16 18 Blood Pressure Pulse Oximetry Intake & Output 05/09/18 05/10/18 05/10/18 18:59 06:59 18:59 Intake Total 250 / 250 250 / 250 Balance 250 / 250 250 / 250 Weight 92.5 kg Intake: IV 250 / 250 250 / 250 Cardene Inj 25 MG In NS Inj 240 250 / 250 250 / 250 ML @ 5 MG/HR 50 mls/hr IV.CONT TITRATE PRN Rx#:[id number] Other: Weight On Admission 92.5 kg Result Diagrams: 05/10/18 03:25 05/10/18 03:25 Imaging: Thoracic Aorta CT 05/09/18 23:27 CONCLUSION: [place] type B aortic dissection with characteristics as described in detail above.. Objective Remarks: GENERAL: He is a 53-year-old male currently resting in bed in no acute distress SKIN: Warm and dry. HEAD: Atraumatic. Normocephalic. EYES: Pupils equal and round. No scleral icterus. No injection or drainage. ENT: No nasal bleeding or discharge. Mucous membranes pink and moist. NECK: Trachea midline. No JVD. CARDIOVASCULAR: Regular rate and rhythm. S1, S2. No S4. RESPIRATORY: No accessory muscle use. Clear to auscultation. Breath sounds equal bilaterally. GASTROINTESTINAL: Abdomen soft, non-tender, nondistended. MUSCULOSKELETAL: Extremities without clubbing, cyanosis, or edema. No obvious deformities. NEUROLOGICAL: Awake and alert. No obvious cranial nerve deficits. Motor grossly within normal limits. Five out of 5 muscle strength in the arms and legs. Normal speech. PSYCHIATRIC: Appropriate mood and affect; insight and judgment normal. Assessment and Plan - Problem List (1) Dissecting aneurysm of thoracic aorta, [place] type B Code(s): I71.01 - Dissection of thoracic aorta Status: Acute (2) Hypertensive emergency Code(s): I16.1 - Hypertensive emergency Status: Acute (3) Hypertension Code(s): I10 - Essential (primary) hypertension Status: Chronic (4) Dyslipidemia Code(s): E78.5 - Hyperlipidemia, unspecified Status: Chronic - Assessment and Plan Plan: NEURO/Psych: Cannabinoids use -Pain controlled with hydrocodone/acetaminophen 7.5/325 2 tablets every 6 hours as needed and IV fentanyl 50 mcg q. one hour -Check urine drug screen -positive cannabinoids RESP: Tobaccoism -Nasal cannula to maintain saturations greater than equal to 92% -Incentive spirometry while awake -Albuterol aerosols every 2 hours as needed -Tobacco cessation counseling CV: Hypertensive emergency Type B aortic dissection History of hypertension History of dyslipidemia -Normal saline IV fluids 75 mL/h -CT surgery consult -Repeat CT angiogram of the aortaAortic dissection begins just beyond the origin of the left subclavian artery. The true lumen channel is fairly diminutive in the proximal descending thoracic region. In the abdomen, the celiac, SMA and renal arteries arise from the true lumen. There is moderate proximal stenotic disease in the renal arteries bilaterally. The aortic true lumen becomes quite small in the distal abdominal aorta and the LUBNA arises from the false lumen. The right iliac arises from the true lumen and continues widely patent through the right pelvis. On the left side, the true lumen occludes in the mid common region with flow continuing into the internal and external iliacs at false lumen opacity. There is no evidence of aneurysmal dilatation. -Previous CT angiogram showed type B dissection involving descending aorta distal to the arch extending into the abdominal aorta -Nicardipine infusion to keep systolic blood pressure less than 140/90 -Labetalol 200 mg p.o. twice daily, IV labetalol 10 mg IV every hour PRN for SBP more than 150. Add amlodipine 5 mg daily starting tomorrow. 2.5 mg today -Check lipid profile GI: Hypoalbuminemia -N.p.o until evaluated by CT surgery -Pantoprazole for GI prophylaxis -Docusate sodium/senna 1 tablet twice daily for bowel regimen Renal/: -Monitor renal function closely. -Accurate I's and O's ID: -No indication for antibiotics at this HEME: Normocytic anemia -Monitor CBC, coags FEN/ENDO: Hypokalemia -Electrolyte replacement per protocol PROPH: -Bilateral lower extremity SCDs. IV famotidine. 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 CARE plan discussed questions answered (3) Hypertension Qualifiers: Hypertension type: unspecified Qualified Code(s): I10 - Essential (primary) hypertension
[2018-05-10] MEDS ORDERED: Labetalol 100 MG Tablet PO ONE (10:36)
[2018-05-10] MEDS ORDERED: amLODIPine 5 MG Tablet PO ONE (10:36)
--- NOTE | 2018-05-10 12:51 | P.CONVS ---
History of Present Illness Service: Vascular surgery Consult date: 05/10/18 Primary Care Provider: No Primary Care Physician Chief Complaint: Uncontrolled hypertension History of Present Illness: 53-year-old male with a past medical history of hypertension who presented to [facility] approximately 5 days ago with a chief complaint of chest pain radiating to the back. Patient was diagnosed with type B dissection and was treated conservatively. Patient left [facility] AGAINST MEDICAL ADVICE because they failed to control his blood pressure and his chest pain. He was admitted to [facility] last night with a consultation to Dr. Marmolejo who contacted me this morning to evaluate the patient. Patient currently denies any chest pain since his blood pressure has been controlled. He denies any abdominal pain or lower extremity pain. [facility] - History History Provided By: Patient - Medical History Medical History: Medical History (Last Reviewed 05/10/18 @ 01:44 by Shabnam Aceves MD) High cholesterol Hypertension Patient denies medical problems - Surgical History Surgical History: Surgical History (Last Reviewed 05/09/18 @ 23:50 by Shabnam Aceves MD) H/O inguinal hernia repair - Tobacco History Second Hand Smoke Exposure: No Tobacco Use In Past 30 Days: Yes Smoking Status: Current every day smoker Tobacco Type: Cigarettes - Alcohol History How Often Do You Have a Drink Containing Alcohol: Never - Substance Use History Substance History: No History of Abuse - Travel History Recent Travel in the [place] Within the Last 8 Weeks: No Recent Travel Out of the Country Within the Last 8 Weeks: No - Immunization History Tetanus Immunization: Unsure Hx Influenza Vaccine This Season: No Medications and Allergies Active Medications: Active Medications Hydrocodone Bitart/Acetaminophen ([place] 7.5/325) 2 tab PO Q6H PRN PRN Reason: pain 5-10 Last Admin: 05/10/18 08:00 Dose: 2 tab Al Hydroxide/Mg Hydroxide (Milk Of Matthias Liq) 30 ml PO Q12H PRN PRN Reason: Mild Constipation Albuterol (Albuterol Neb (Prn)) 2.5 mg NEB Q4HR NEB PRN PRN Reason: DYSPNEA Amlodipine Besylate (Norvasc) 5 mg PO DAILY VA Bisacodyl (Dulcolax Supp) 10 mg RECTAL DAILY PRN PRN Reason: SEVERE CONSITIPATION Chlorhexidine Gluconate (Chlorhexidine 2% Cloth) 3 pack TOPICAL DAILY@0400 [facility] Stop: 05/15/18 03:59 Last Admin: 05/10/18 04:00 Dose: 3 pack Chlorhexidine Gluconate (Chlorhexidine 2% Cloth) 3 pack TOPICAL DAILY@0400 PRN PRN Reason: Extra cloth needed Stop: 05/15/18 03:59 Fentanyl Citrate (Fentanyl Inj) 50 mcg IV PUSH Q1H PRN PRN Reason: Pain scale 6-10, &/or sedation Nicardipine HCl 25 mg/ Sodium (Chloride) 250 mls @ 50 mls/hr IV.CONT TITRATE PRN; Protocol PRN Reason: Per Protocol Last Admin: 05/10/18 08:37 Dose: 7.5 mg/hr, 75 mls/hr Magnesium Sulfate 4 gm/ Sodium (Chloride) 100 mls @ 50 mls/hr IV.SIG UNSCH PRN PRN Reason: For Magnesium 0.9 - 1.1 mg/dL Magnesium Sulfate 2 gm/ Sodium (Chloride) 100 mls @ 50 mls/hr IV.SIG UNSCH PRN PRN Reason: For Magnesium 1.2 - 1.6 mg/dL Potassium Chloride (Kcl 40 Meq Premix Inj) 40 meq in 100 mls @ 25 mls/hr IV.SIG Q2H PRN PRN Reason: For Potassium 2.8 - 3.2 mEq/L Potassium Chloride (Kcl 20 Meq Premix Inj) 20 meq in 100 mls @ 50 mls/hr IV.SIG Q2H PRN PRN Reason: For Potassium 3.3 - 3.5 mEq/L Potassium Chloride (Kcl 40 Meq Premix Inj) 40 meq in 100 mls @ 25 mls/hr IV.SIG UNSCH PRN PRN Reason: For Potassium 3.3 - 3.5 mEq/L Potassium Chloride (Kcl 20 Meq Premix Inj) 20 meq in 100 mls @ 50 mls/hr IV.SIG Q2H PRN PRN Reason: For Potassium 2.8 - 3.2 mEq/L Potassium Phosphate 30 mmol/ (Sodium Chloride) 260 mls @ 42 mls/hr IV.SIG UNSCH PRN PRN Reason: SEE LABEL COMMENTS Sodium Phosphate 30 mmol/ (Sodium Chloride) 260 mls @ 42 mls/hr IV.SIG UNSCH PRN PRN Reason: For Phosphorus < 2.5 mg/dL Labetalol HCl (Trandate Inj) 10 mg IV.PUSH Q1H PRN PRN Reason: SBP > 150, HR > 60 Labetalol HCl (Trandate) 200 mg PO BID [facility] Lactulose (Lactulose Liq) 30 ml PO DAILY PRN PRN Reason: SEVERE CONSITIPATION Magnesium Oxide (Mag-Ox) 800 mg PO UNSCH PRN PRN Reason: For Magnesium 1.2 - 1.6 mg/dL Pantoprazole Sodium (Protonix) 40 mg PO DAILY [facility] Potassium Chloride (Kcl Liq) 40 meq PO UNSCH PRN PRN Reason: Potassium level 3.3-3.5 mEq/L Last Admin: 05/10/18 05:45 Dose: 40 meq Potassium Chloride (Kcl Liq) 40 meq PO UNSCH PRN PRN Reason: POTASSIUM LESS THAN 3.5 Potassium Phosphate (K-Phos Original) 2,000 mg PO Q4H PRN PRN Reason: Phosphorus Less Than 2.5 mg/dL Potassium Phosphate (K-Phos Original) 2,000 mg PO UNSCH PRN PRN Reason: SEE LABEL COMMENTS Senna/Docusate Sodium (Rose-Colace) 1 tab PO BID [facility] Last Admin: 05/10/18 09:31 Dose: 1 tab Sennosides (Senokot) 17.2 mg PO Q12H PRN PRN Reason: Moderate Constipation Sodium Chloride (Ns Flush) 2 ml IV.FLUSH UNSCH PRN PRN Reason: FLUSH AFTER USING IV ACCESS Sodium Chloride (Ns Flush) 2 ml IV.FLUSH BID [facility] Last Admin: 05/10/18 09:31 Dose: 2 ml Sodium Chloride (Ns Flush) 2 ml IV.FLUSH PRN PRN PRN Reason: FLUSH AFTER USING IV ACCESS Allergies Allergy/AdvReac Type Severity Reaction Status Date / Time No Known Allergies Allergy Verified 05/09/18 21:00 Home Medications Medication Instructions Recorded Confirmed Type No Known Home Medications 05/09/18 05/09/18 History Physical Exam Vital Signs / I&O: Vital Signs 05/09/18 20:43 05/09/18 21:01 05/09/18 21:42 Temperature 97.8 F Pulse Rate 78 78 68 Respiratory Rate 17 18 18 Blood Pressure 227/103 H 219/101 H 191/101 H Pulse Oximetry 97 97 99 05/09/18 22:17 05/09/18 22:25 05/09/18 22:55 Temperature Pulse Rate 68 70 Respiratory Rate 18 18 Blood Pressure 177/88 H 191/92 H 212/102 H Pulse Oximetry 98 98 05/09/18 23:16 05/09/18 23:28 05/09/18 23:57 Temperature Pulse Rate 68 69 Respiratory Rate 18 18 Blood Pressure 163/81 H 154/82 H 161/84 H Pulse Oximetry 99 98 05/10/18 00:27 05/10/18 01:00 05/10/18 03:00 Temperature 98.5 F 98.1 F Pulse Rate 68 62 Respiratory Rate 20 16 16 Blood Pressure 165/100 H 143/72 H Pulse Oximetry 95 95 05/10/18 04:00 05/10/18 09:37 Temperature Pulse Rate Respiratory Rate 16 18 Blood Pressure Pulse Oximetry Intake & Output 05/09/18 05/10/18 05/10/18 18:59 06:59 18:59 Intake Total 250 / 250 250 / 250 Balance 250 / 250 250 / 250 Weight 92.5 kg Intake: IV 250 / 250 250 / 250 Cardene Inj 25 MG In NS Inj 240 250 / 250 250 / 250 ML @ 5 MG/HR 50 mls/hr IV.CONT TITRATE PRN Rx#:[id number] Other: Weight On Admission 92.5 kg Neuro: Alert awake wanted x3 HEENT: Normocephalic atraumatic Neck: Supple Heart: S1-S2 Lungs: Clear to auscultation bilateral Abdomen: Soft nontender nondistended, no rebound or peritoneal sign Vascular: Palpable femoral pulses bilaterally Palpable pedal pulses bilaterally Laboratory Results - last 24 hr 05/09/18 05/09/18 05/09/18 21:39 21:39 21:39 WBC 9.4 RBC 3.91 L Hgb 13.5 Hct 37.2 L MCV 95.2 MCH 34.5 H MCHC 36.2 H RDW 13.5 Plt Count 397 MPV 7.8 Prelim Diff (Auto) Slide review pending Neut % (Auto) 63.8 Lymph % (Auto) 16.8 Clare % (Auto) 12.1 H Eos % (Auto) 6.7 H Baso % (Auto) 0.6 Neut # (Auto) 6.0 Lymph # (Auto) 1.6 Clare # (Auto) 1.1 H Eos # (Auto) 0.6 H Baso # (Auto) 0.1 WBC Differential . Diff Scan Auto diff confirmed Differential Comment . Platelet Estimate Normal Platelet Morphology Normal PT 10.3 INR 1.0 APTT 31.6 Sodium 136 Potassium 3.5 Chloride 102 Carbon Dioxide 22.9 Anion Gap 11 BUN 11 Creatinine 1.02 Estimated GFR 76 L Random Glucose 72 L Calcium 8.8 Magnesium Total Bilirubin 0.6 AST 15 ALT 28 Alkaline Phosphatase 80 Total Creatine Kinase 194 CK-MB (CK-2) 4.5 H Troponin I Less than 0.02 L Total Protein 7.7 Albumin 3.5 Lipase 66 L Urine Color Urine Clarity Urine pH Ur Specific [place] Urine Protein Urine Glucose (UA) Urine Ketones Urine Occult Blood Urine Nitrate Urine Bilirubin Urine Urobilinogen Ur Leukocyte Esterase Urine RBC Urine WBC Micro UA Comment Ur Microscopic Review Urine Culture Comments Nasal Screen MRSA (PCR) Urine Opiates Screen Ur Barbiturates Screen Ur Amphetamines Screen U Benzodiazepines Scrn Urine Cocaine Screen U Cannabinoids Screen Serum Alcohol Less than 3 05/09/18 05/09/18 05/10/18 21:39 21:39 00:43 WBC RBC Hgb Hct MCV MCH MCHC RDW Plt Count MPV Prelim Diff (Auto) Neut % (Auto) Lymph % (Auto) [place] % (Auto) Eos % (Auto) Baso % (Auto) Neut # (Auto) Lymph # (Auto) Clare # (Auto) Eos # (Auto) Baso # (Auto) WBC Differential Diff Scan Differential Comment Platelet Estimate Platelet Morphology PT INR APTT Sodium Potassium Chloride Carbon Dioxide Anion Gap BUN Creatinine Estimated GFR Random Glucose Calcium Magnesium Total Bilirubin AST ALT Alkaline Phosphatase Total Creatine Kinase CK-MB (CK-2) Troponin I Total Protein Albumin Lipase Urine Color Yellow Urine Clarity Clear Urine pH 6.0 Ur Specific [place] 1.012 Urine Protein Negative Urine Glucose (UA) Negative Urine Ketones Trace H Urine Occult Blood Small H Urine Nitrate Negative Urine Bilirubin Negative Urine Urobilinogen Less than 2 Ur Leukocyte Esterase Negative Urine RBC 1 Urine WBC 1 Micro UA Comment Culture not ind Ur Microscopic Review Not Reportable Urine Culture Comments Culture not ind Nasal Screen MRSA (PCR) Not detected Urine Opiates Screen Neg Ur Barbiturates Screen Neg Ur Amphetamines Screen Neg U Benzodiazepines Scrn Neg Urine Cocaine Screen Neg U Cannabinoids Screen Pos H Serum Alcohol 05/10/18 05/10/18 03:25 03:25 WBC 8.2 RBC 3.67 L Hgb 12.5 L Hct 34.9 L MCV 95.1 MCH 34.0 MCHC 35.7 RDW 13.2 Plt Count 362 MPV 7.6 Prelim Diff (Auto) Neut % (Auto) 63.2 Lymph % (Auto) 16.6 Clare % (Auto) 12.8 H Eos % (Auto) 6.7 H Baso % (Auto) 0.7 Neut # (Auto) 5.2 Lymph # (Auto) 1.4 Clare # (Auto) 1.0 H Eos # (Auto) 0.6 H Baso # (Auto) 0.1 WBC Differential . Diff Scan Differential Comment Auto diff final Platelet Estimate Platelet Morphology PT INR APTT Sodium 137 Potassium 3.4 L Chloride 103 Carbon Dioxide 27.9 Anion Gap 6 BUN 13 Creatinine 1.20 Estimated GFR 63 L Random Glucose 83 Calcium 8.4 L Magnesium 2.2 Total Bilirubin 0.5 AST 15 ALT 26 Alkaline Phosphatase 76 Total Creatine Kinase CK-MB (CK-2) Troponin I Total Protein 7.1 D Albumin 3.2 L Lipase Urine Color Urine Clarity Urine pH Ur Specific [place] Urine Protein Urine Glucose (UA) Urine Ketones Urine Occult Blood Urine Nitrate Urine Bilirubin Urine Urobilinogen Ur Leukocyte Esterase Urine RBC Urine WBC Micro UA Comment Ur Microscopic Review Urine Culture Comments Nasal Screen MRSA (PCR) Urine Opiates Screen Ur Barbiturates Screen Ur Amphetamines Screen U Benzodiazepines Scrn Urine Cocaine Screen U Cannabinoids Screen Serum Alcohol Impressions Thoracic Aorta CT 05/09/18 23:27 CONCLUSION: [place] type B aortic dissection with characteristics as described in detail above.. Assessment and Plan - Assessment (1) Hypertensive crisis Code(s): I16.9 - Hypertensive crisis, unspecified Status: Acute (2) Dissecting aneurysm of thoracic aorta, [place] type B Code(s): I71.01 - Dissection of thoracic aorta Status: Acute - Plan uncomplicated acute type B dissection Blood pressure and chest pain well-controlled No evidence of visceral malperfusion on physical exam. No evidence of lower extremity ischemia. 1. Continue to wean off Cardene drip 2. Check lactic acid 3. Slight increase in creatinine, most likely due to dehydration versus contrast induced. We will continue to follow 4. I will continue to follow patient clinically. Thank you for allowing us to participate in this patient care. If you have any questions do not hesitate to call my cell phone Waqar Jarrell MD [facility] [phone]
--- NOTE | 2018-05-10 14:11 | ECG ---
Date Performed: 05/09/2018 Time Performed: 20:59:14 PTAGE: 53 years EKG: Baseline artifact present Sinus rhythm MODERATE VOLTAGE CRITERIA FOR LVH, CONSIDER NORMAL VARIANT BORDERLINE ECG NO PREVIOUS TRACING DOCTOR: Garth Kimble Interpretating Date/Time 05/10/2018 14:09:39
[2018-05-11] MEDS: niCARdipine Inj 25 MG in Sodium Chlor 0.9% Inj 240 ML IV.CONT PRN ×3 (00:25→10:08)
[2018-05-11 04:20] LABS: Baso # (Auto) 0.1 th/mm3 (0.0-0.2); Baso % (Auto) 0.8 % (0.0-2.0); Eos # (Auto) 0.5 th/mm3 (0.0-0.4); Eos % (Auto) 6.7 % (0.0-4.0); Hematocrit 39.2 % (39.0-51.0); Hemoglobin 13.8 gm/dL (13.0-17.0); Lymph # (Auto) 1.3 th/mm3 (1.0-4.8); Lymph % (Auto) 16.2 % (9.0-44.0); Mean Corpuscular HGB Conc 35.3 % (32.0-36.0); Mean Corpuscular Hemoglobin 33.9 pg (27.0-34.0); Mean Corpuscular Volume 95.9 fL (80.0-100.0); Mono % (Auto) 12.9 % (0.0-8.0); Neut # (Auto) 5.1 th/mm3 (1.8-7.7); Neut % (Auto) 63.4 % (16.0-70.0); Platelet Count 401 th/mm3 (150-450); Red Blood Count 4.08 mil/mm3 (4.50-5.90); Red Cell Distribution Width 13.2 % (11.6-17.2); White Blood Count 8.1 th/mm3 (4.0-11.0)
[2018-05-11 04:52] LABS: Albumin 3.2 g/dL (3.4-5.0); Anion Gap 5 meq/L (5-15); Blood Urea Nitrogen 10 mg/dL (7-18); Calcium 8.7 mg/dL (8.5-10.1); Carbon Dioxide 27.6 meq/L (21.0-32.0); Chloride 105 meq/L (98-107); Glomerular Filtration Rate 79 mL/min (>89); Glucose,Random 78 mg/dL (74-106); Magnesium 2.3 mg/dL (1.5-2.5); Potassium 3.9 meq/L (3.5-5.1); Sodium 138 meq/L (136-145)
[2018-05-11 04:53] LABS: Alanine Aminotransferase 25 U/L (12-78); Aspartate Aminotransferase 8 U/L (15-37)
[2018-05-11 04:56] LABS: Alkaline Phosphatase 73 U/L (45-117); Phosphorus 3.1 mg/dL (2.5-4.9); Total Protein 7.3 g/dL (6.4-8.2)
[2018-05-11] MEDS: Chlorhexidine Gluconate 2% 1 Pack (2 Cloths) TOPICAL SCH (05:27)
--- NOTE | 2018-05-11 06:52 | P.PNCC ---
Subjective Subjective Remarks/Hospital Course: Patient is 53-year-old male here with past medical history significant for hypertension, dyslipidemia recently diagnosed type B aortic dissection (on ) who presented to the emergency department today for evaluation of elevated blood pressure, and back pain. The patient stated that he was admitted to the [facility] from 05/04/18 for similar complaints and had been diagnosed with hypertensive emergency and type B dissection of the aorta. Records from [facility] reviewed, CT of the chest abdomen pelvis showed aortic dissection involving the thoracic and abdominal aorta extending from distal arch, distal to the origin of left subclavian artery to the left common iliac artery. CT surgery was consulted at [facility] and recommended medical management. He left AMA yesterday because in his opinion his blood pressure and pain was not adequately controlled. Initial blood pressures in the ED was 227/103. Patient was given 20 mg IV labetalol. Because of uncontrolled hypertension and recent type B dissection critical care medicine was requested to admit the patient. I evaluated the patient in the ED. His blood pressure is slightly better controlled however patient appears in obvious discomfort due to pain. He will be admitted to the ICU started on Cardene infusion along with PRN and scheduled labetalol. Cardiothoracic surgery will be reconsulted after getting aortic CT angiogram repeated. 05/10: Patient resting in bed in no acute distress. States his "back pain" is much improved. Blood pressure much improved on nicardipine drip. Requesting diet. Subjective 05/11: Remains on nicardipine drip at 5 mg an hour. Requesting advance diet from clear liquids currently. Discussed with patient increasing medication dosages. Back pain much improved. Objective Vital Signs / I&O: Vital Signs 05/10/18 07:00 05/10/18 09:37 05/10/18 11:00 Temperature 97.7 F 98.1 F Pulse Rate 80 68 Respiratory Rate 16 18 16 Blood Pressure 142/82 H 147/83 H Pulse Oximetry 95 05/10/18 15:00 05/10/18 16:00 05/10/18 19:00 Temperature 97.9 F 98.7 F Pulse Rate 65 71 Respiratory Rate 18 16 16 Blood Pressure 168/88 H 143/80 H Pulse Oximetry 97 05/10/18 20:00 05/10/18 20:30 05/10/18 23:00 Temperature 98.7 F Pulse Rate 57 L Respiratory Rate 16 16 Blood Pressure 101/55 L Pulse Oximetry 97 05/11/18 01:05 05/11/18 03:00 05/11/18 03:37 Temperature 98.6 F Pulse Rate 59 L Respiratory Rate 16 16 16 Blood Pressure 109/52 L Pulse Oximetry Intake & Output 05/10/18 05/10/18 05/11/18 06:59 18:59 06:59 Intake Total 250 / 250 2300 / 2300 1750 / 1750 Output Total 2775 / 2775 2225 / 2225 Balance 250 / 250 -475 / -475 -475 / -475 Weight 92.5 kg 92.5 kg Intake: IV 250 / 250 500 / 500 750 / 750 Cardene Inj 25 MG In NS Inj 240 250 / 250 500 / 500 750 / 750 ML @ 5 MG/HR 50 mls/hr IV.CONT TITRATE PRN Rx#:[id number] Oral 1800 / 1800 1000 / 1000 Output: Urine 2775 / 2775 2225 / 2225 Stool 0 / 0 Other: Date of Last Bowel Movement 05/10/18 # Bowel Movements 0 Weight On Admission 92.5 kg Result Diagrams: 05/11/18 04:11 05/11/18 04:11 Imaging: Thoracic Aorta CT 05/09/18 23:27 CONCLUSION: Lam type B aortic dissection with characteristics as described in detail above.. Objective Remarks: GENERAL: He is a 53-year-old male currently resting in bed in no acute distress SKIN: Warm and dry. HEAD: Atraumatic. Normocephalic. EYES: Pupils equal and round. No scleral icterus. No injection or drainage. ENT: No nasal bleeding or discharge. Mucous membranes pink and moist. NECK: Trachea midline. No JVD. CARDIOVASCULAR: Regular rate and rhythm. S1, S2. No S4. No murmur appreciated RESPIRATORY: No accessory muscle use. Clear to auscultation. Breath sounds equal bilaterally. GASTROINTESTINAL: Abdomen soft, non-tender, nondistended. MUSCULOSKELETAL: Extremities without clubbing, cyanosis, or edema. No obvious deformities. NEUROLOGICAL: Awake and alert. No obvious cranial nerve deficits. Motor grossly within normal limits. Five out of 5 muscle strength in the arms and legs. Normal speech. PSYCHIATRIC: Appropriate mood and affect; insight and judgment normal. Assessment and Plan - Problem List (1) Dissecting aneurysm of thoracic aorta, [place] type B Code(s): I71.01 - Dissection of thoracic aorta Status: Acute (2) Hypertensive emergency Code(s): I16.1 - Hypertensive emergency Status: Acute (3) Hypertension Code(s): I10 - Essential (primary) hypertension Status: Chronic (4) Dyslipidemia Code(s): E78.5 - Hyperlipidemia, unspecified Status: Chronic - Assessment and Plan Plan: NEURO/Psych: Cannabinoids use -Pain controlled with hydrocodone/acetaminophen 7.5/325 2 tablets every 6 hours as needed and IV fentanyl 50 mcg q. one hour -Check urine drug screen -positive cannabinoids RESP: Tobaccoism -Nasal cannula to maintain saturations greater than equal to 92% -Incentive spirometry while awake -Albuterol aerosols every 2 hours as needed -Tobacco cessation counseling CV: Hypertensive emergency Type B aortic dissection History of hypertension History of dyslipidemia -Normal saline IV fluids 75 mL/h will be discontinued -CT surgery consult/vascular's consult Dr. Jarrell appreciated. Continue to monitor. -Repeat CT angiogram of the aortaAortic dissection begins just beyond the origin of the left subclavian artery. The true lumen channel is fairly diminutive in the proximal descending thoracic region. In the abdomen, the celiac, SMA and renal arteries arise from the true lumen. There is moderate proximal stenotic disease in the renal arteries bilaterally. The aortic true lumen becomes quite small in the distal abdominal aorta and the LUBNA arises from the false lumen. The right iliac arises from the true lumen and continues widely patent through the right pelvis. On the left side, the true lumen occludes in the mid common region with flow continuing into the internal and external iliacs at false lumen opacity. There is no evidence of aneurysmal dilatation. -Previous CT angiogram showed type B dissection involving descending aorta distal to the arch extending into the abdominal aorta -Nicardipine infusion to keep systolic blood pressure less than 140/90 -Labetalol 400 mg p.o. twice daily, IV labetalol 10 mg IV every hour PRN for SBP more than 150. Add amlodipine 5 mg daily and lisinopril 5 mg twice daily GI: Hypoalbuminemia -Clear liquid diet per vascular surgery -Pantoprazole for GI prophylaxis -Docusate sodium/senna 1 tablet twice daily for bowel regimen Renal/: -Monitor renal function closely. -Accurate I's and O's ID: -No indication for antibiotics at this HEME: -Monitor CBC, coags FEN/ENDO: Hypokalemia -Electrolyte replacement per protocol MSK: Elevated BMI -Weight loss encouraged PROPH: -Bilateral lower extremity SCDs. Pantoprazole. Avoid chemical DVT prophylaxis LINES: -Utilize peripheral IVs, central line if needed Level 2 follow-up Code Status: Full code Discussed Condition With: TRANSFERRER. Patient. Care plan discussed and all questions answered. (3) Hypertension Qualifiers: Hypertension type: unspecified Qualified Code(s): I10 - Essential (primary) hypertension
[2018-05-11] MEDS: amLODIPine 5 MG Tablet PO SCH (09:04)
[2018-05-11] MEDS: Senna/Docusate Sodium 8.6/50 MG Tablet PO SCH ×2 (09:04→20:13)
[2018-05-11] MEDS: Lisinopril 5 MG Tablet PO SCH ×2 (09:04→20:12)
[2018-05-11] MEDS: Labetalol 200 MG Tablet PO SCH ×2 (09:04→20:12)
--- NOTE | 2018-05-11 10:36 | P.PNVS ---
Subjective Subjective/Hospital Course: Patient resting comfortable at the edge of the bed. He denies any chest pain or back pain. He tolerating clear liquid diet without problems. He is requesting to go home today. Objective Vital Signs / I&O: Vital Signs 05/10/18 11:00 05/10/18 15:00 05/10/18 16:00 Temperature 98.1 F 97.9 F Pulse Rate 68 65 Respiratory Rate 16 18 16 Blood Pressure 147/83 H 168/88 H Pulse Oximetry 95 05/10/18 19:00 05/10/18 20:00 05/10/18 20:30 Temperature 98.7 F Pulse Rate 71 Respiratory Rate 16 16 Blood Pressure 143/80 H Pulse Oximetry 97 97 05/10/18 23:00 05/11/18 01:05 05/11/18 03:00 Temperature 98.7 F 98.6 F Pulse Rate 57 L 59 L Respiratory Rate 16 16 16 Blood Pressure 101/55 L 109/52 L Pulse Oximetry 05/11/18 03:37 05/11/18 07:00 05/11/18 08:00 Temperature 98.7 F Pulse Rate 78 Respiratory Rate 16 16 16 Blood Pressure 131/76 Pulse Oximetry 96 05/11/18 09:02 Temperature Pulse Rate Respiratory Rate 16 Blood Pressure Pulse Oximetry Intake & Output 05/10/18 05/11/18 05/11/18 18:59 06:59 18:59 Intake Total 2300 / 2300 1750 / 1750 250 / 250 Output Total 2775 / 2775 2225 / 2225 Balance -475 / -475 -475 / -475 250 / 250 Weight 92.5 kg Intake: IV 500 / 500 750 / 750 250 / 250 Cardene Inj 25 MG In NS Inj 240 500 / 500 750 / 750 250 / 250 ML @ 5 MG/HR 50 mls/hr IV.CONT TITRATE PRN Rx#:[id number] Oral 1800 / 1800 1000 / 1000 Output: Urine 2775 / 2775 2225 / 2225 Stool 0 / 0 Other: Date of Last Bowel Movement 05/10/18 # Bowel Movements 0 Physical Exam: Palpable femoral pulses bilaterally. Abdomen soft nontender nondistended Laboratory Results - last 24 hr 05/10/18 05/11/18 05/11/18 14:26 04:11 04:11 WBC 8.1 RBC 4.08 L Hgb 13.8 Hct 39.2 MCV 95.9 MCH 33.9 MCHC 35.3 RDW 13.2 Plt Count 401 MPV 7.0 Neut % (Auto) 63.4 Lymph % (Auto) 16.2 [place] % (Auto) 12.9 H Eos % (Auto) 6.7 H Baso % (Auto) 0.8 Neut # (Auto) 5.1 Lymph # (Auto) 1.3 [place] # (Auto) 1.0 H Eos # (Auto) 0.5 H Baso # (Auto) 0.1 WBC Differential . Differential Comment Auto diff final Sodium 138 Potassium 3.9 Chloride 105 Carbon Dioxide 27.6 Anion Gap 5 BUN 10 Creatinine 0.99 Estimated GFR 79 L Random Glucose 78 Lactic Acid 0.7 Calcium 8.7 Phosphorus 3.1 Magnesium 2.3 Total Bilirubin 0.4 AST 8 L ALT 25 Alkaline Phosphatase 73 Total Protein 7.3 Albumin 3.2 L Impressions Thoracic Aorta CT 05/09/18 23:27 CONCLUSION: [place] type B aortic dissection with characteristics as described in detail above.. Assessment and Plan - Assessment (1) Hypertensive crisis Code(s): I16.9 - Hypertensive crisis, unspecified Status: Acute (2) Dissecting aneurysm of thoracic aorta, [place] type B Code(s): I71.01 - Dissection of thoracic aorta Status: Acute - Plan uncomplicated acute type B dissection Blood pressure and chest pain well-controlled No evidence of visceral malperfusion (no lactic acidosis, normal kidney function ) No evidence of lower extremity ischemia. 1. Continue to wean off Cardene drip 2. Advance diet as tolerated 3. Patient wants to go home as soon as possible. I explained to him that we have to have better control of his blood pressure prior to discharge. He seemed receptive. Waqar Jarrell MD [facility] [phone]
[2018-05-11] MEDS: Labetalol HCl Inj 20 MG/4 ML Vial IV.PUSH PRN (22:38)
[2018-05-12] MEDS: Labetalol HCl Inj 20 MG/4 ML Vial IV.PUSH PRN ×4 (02:17→17:04)
[2018-05-12] MEDS: Chlorhexidine Gluconate 2% 1 Pack (2 Cloths) TOPICAL SCH (03:57)
[2018-05-12 05:08] LABS: Baso # (Auto) 0.1 th/mm3 (0.0-0.2); Baso % (Auto) 0.8 % (0.0-2.0); Eos # (Auto) 0.4 th/mm3 (0.0-0.4); Eos % (Auto) 4.5 % (0.0-4.0); Hematocrit 40.1 % (39.0-51.0); Hemoglobin 13.9 gm/dL (13.0-17.0); Lymph # (Auto) 1.5 th/mm3 (1.0-4.8); Lymph % (Auto) 15.2 % (9.0-44.0); Mean Corpuscular HGB Conc 34.8 % (32.0-36.0); Mean Corpuscular Hemoglobin 33.3 pg (27.0-34.0); Mean Corpuscular Volume 95.8 fL (80.0-100.0); Mean Platelet Volume 8.2 fL (7.0-11.0); Mono # (Auto) 1.1 th/mm3 (0.0-0.9); Mono % (Auto) 11.6 % (0.0-8.0); Neut # (Auto) 6.5 th/mm3 (1.8-7.7); Neut % (Auto) 67.9 % (16.0-70.0); Platelet Count 431 th/mm3 (150-450); Red Blood Count 4.18 mil/mm3 (4.50-5.90); Red Cell Distribution Width 13.3 % (11.6-17.2); White Blood Count 9.5 th/mm3 (4.0-11.0)
[2018-05-12 05:32] LABS: Calcium 8.7 mg/dL (8.5-10.1); Carbon Dioxide 25.8 meq/L (21.0-32.0); Magnesium 2.4 mg/dL (1.5-2.5); Phosphorus 3.1 mg/dL (2.5-4.9); Potassium 4.1 meq/L (3.5-5.1)
[2018-05-12] MEDS ORDERED: ALPRAZolam 0.5 MG Tablet PO PRN (07:36)
--- NOTE | 2018-05-12 07:44 | P.PNCC ---
Subjective Subjective Remarks/Hospital Course: Patient is 53-year-old male here with past medical history significant for hypertension, dyslipidemia recently diagnosed type B aortic dissection (on ) who presented to the emergency department today for evaluation of elevated blood pressure, and back pain. The patient stated that he was admitted to the [facility] from 05/04/18 for similar complaints and had been diagnosed with hypertensive emergency and type B dissection of the aorta. Records from [facility] reviewed, CT of the chest abdomen pelvis showed aortic dissection involving the thoracic and abdominal aorta extending from distal arch, distal to the origin of left subclavian artery to the left common iliac artery. CT surgery was consulted at [facility] and recommended medical management. He left AMA yesterday because in his opinion his blood pressure and pain was not adequately controlled. Initial blood pressures in the ED was 227/103. Patient was given 20 mg IV labetalol. Because of uncontrolled hypertension and recent type B dissection critical care medicine was requested to admit the patient. I evaluated the patient in the ED. His blood pressure is slightly better controlled however patient appears in obvious discomfort due to pain. He will be admitted to the ICU started on Cardene infusion along with PRN and scheduled labetalol. Cardiothoracic surgery will be reconsulted after getting aortic CT angiogram repeated. 05/10: Patient resting in bed in no acute distress. States his "back pain" is much improved. Blood pressure much improved on nicardipine drip. Requesting diet. 05/11: Remains on nicardipine drip at 5 mg an hour. Requesting advance diet from clear liquids currently. Discussed with patient increasing medication dosages. Back pain much improved. 05/12: Patient has been off cardene gtt since 1 PM yesterday, hypertensive overnight, requiring multiple PRNs. The patient expresses frustration this morning that he is still in the hospital, states that he wants to go home. Otherwise offers no complaints. Objective Vital Signs / I&O: Vital Signs 05/11/18 08:00 05/11/18 08:30 05/11/18 09:02 Temperature Pulse Rate Respiratory Rate 16 16 Blood Pressure Pulse Oximetry 96 97 05/11/18 11:00 05/11/18 15:00 05/11/18 19:00 Temperature 98.2 F 98.7 F Pulse Rate 74 66 67 Respiratory Rate 14 14 Blood Pressure 120/63 127/83 Pulse Oximetry 94 L 05/11/18 19:20 05/11/18 20:08 05/11/18 21:20 Temperature 98.8 F Pulse Rate 73 Respiratory Rate 18 Blood Pressure 157/92 H Pulse Oximetry 98 96 98 05/11/18 23:00 05/11/18 23:30 05/12/18 03:00 Temperature 98.8 F Pulse Rate 67 71 67 Respiratory Rate 18 Blood Pressure 140/69 Pulse Oximetry 98 05/12/18 03:39 05/12/18 04:35 05/12/18 07:00 Temperature 98.3 F Pulse Rate 74 70 Respiratory Rate 18 18 Blood Pressure 148/83 H Pulse Oximetry 96 Intake & Output 05/11/18 05/12/18 05/12/18 18:59 06:59 18:59 Intake Total 970 / 970 240 / 240 Output Total 850 / 850 1550 / 1550 Balance 120 / 120 -1310 / -1310 Weight 90 kg Intake: IV 250 / 250 Cardene Inj 25 MG In NS Inj 240 250 / 250 ML @ 5 MG/HR 50 mls/hr IV.CONT TITRATE PRN Rx#:[id number] Oral 720 / 720 240 / 240 Output: Urine 850 / 850 1550 / 1550 Other: Date of Last Bowel Movement 05/12/18 # Bowel Movements 0 1 Result Diagrams: 05/12/18 03:26 05/12/18 03:26 Objective Remarks: GENERAL: Well-appearing, no acute distress SKIN: No rashes or lesions HEAD: NCAT EYES: PERRL ENT: Mucous membranes pink and moist. NECK: Trachea midline. CARDIOVASCULAR: Regular rate and rhythm. RESPIRATORY: Clear to auscultation. Breath sounds equal bilaterally. GASTROINTESTINAL: Abdomen soft, non-tender, nondistended. MUSCULOSKELETAL: No obvious deformities. NEUROLOGICAL: Awake and alert. No obvious cranial nerve deficits. Motor grossly within normal limits. Normal speech. PSYCHIATRIC: Appropriate mood and affect; insight and judgment normal. Assessment and Plan - Assessment and Plan Plan: NEURO/Psych: Cannabinoids use -Pain controlled with hydrocodone/acetaminophen 7.5/325 2 tablets every 6 hours as needed -D/C fentanyl -Add xanax PRN agitation/ anxiety -Urine drug screen -positive cannabinoids RESP: Tobaccoism -Incentive spirometry while awake -Albuterol aerosols every 2 hours as needed -Tobacco cessation counseling CV: Hypertensive emergency Type B aortic dissection History of hypertension History of dyslipidemia -Discussed case with Dr. Jarrell of CT surgery this AM -Repeat CT angiogram of the aorta: Aortic dissection begins just beyond the origin of the left subclavian artery. The true lumen channel is fairly diminutive in the proximal descending thoracic region. In the abdomen, the celiac, SMA and renal arteries arise from the true lumen. There is moderate proximal stenotic disease in the renal arteries bilaterally. The aortic true lumen becomes quite small in the distal abdominal aorta and the LUBNA arises from the false lumen. The right iliac arises from the true lumen and continues widely patent through the right pelvis. On the left side, the true lumen occludes in the mid common region with flow continuing into the internal and external iliacs at false lumen opacity. There is no evidence of aneurysmal dilatation. -Previous CT angiogram showed type B dissection involving descending aorta distal to the arch extending into the abdominal aorta -Labetalol 400 mg p.o. twice daily, IV labetalol 10 mg IV every hour PRN for SBP more than 150, continue lisinopril 5 mg twice daily -Amlodipine added yesterday, should start to have an effect between and Saturday, will increase to 7.5 mg BID -Nicardipine infusion to keep systolic blood pressure less than 140/90 only if PO meds fail to control BP GI: Hypoalbuminemia -Cardiac diet -D/C protonix as patient is tolerating PO -Docusate sodium/senna 1 tablet twice daily for bowel regimen Renal/: -Monitor renal function closely, creatinine minimally trending up this morning -Is and Os qshift ID: -No active issues HEME: -No active issues FEN/ENDO: Hypokalemia -Electrolyte replacement per protocol MSK: Elevated BMI -Weight loss encouraged PROPH: -Bilateral lower extremity SCDs. No indication for stress ulcer prophylaxis as patient is tolerating PO. Early ambulation. LINES: -Peripheral IVs Up and out of bed as tolerated, PT eval Level 2 follow-up To help prompt me to consider important information that might be impacting today's encounter and assessment, information from prior notes written by myself or my colleagues may have been "brought forward" into today's note. My signature on this note, however, is an attestation that I personally performed the exam, history, and/or decision-making noted today, and, unless otherwise indicated, the interactions with patient, family, and staff as well as the review of records all occurred today. I also attest that the listed assessment and stated plan reflect my best clinical judgment today based on the combination of historical information, prior notes, and today's exam/ interactions. Code Status: Full
[2018-05-12] MEDS: Senna/Docusate Sodium 8.6/50 MG Tablet PO SCH ×4 (07:54→23:08)
[2018-05-12] MEDS: Labetalol 200 MG Tablet PO SCH ×4 (07:54→23:09)
[2018-05-12] MEDS: amLODIPine 5 MG Tablet PO SCH ×3 (07:54→08:23)
[2018-05-12] MEDS: Lisinopril 5 MG Tablet PO SCH ×3 (07:59→23:08)
--- NOTE | 2018-05-12 08:42 | P.PNVS ---
Subjective Subjective/Hospital Course: Off Cardene drip overnight. 2 episodes of hypertension requiring as needed medication. Denies any chest pain or back pain. Objective Vital Signs / I&O: Vital Signs 05/11/18 09:02 05/11/18 11:00 05/11/18 15:00 Temperature 98.2 F 98.7 F Pulse Rate 74 66 Respiratory Rate 16 14 14 Blood Pressure 120/63 127/83 Pulse Oximetry 94 L 05/11/18 19:00 05/11/18 19:20 05/11/18 20:08 Temperature 98.8 F Pulse Rate 67 73 Respiratory Rate 18 Blood Pressure 157/92 H Pulse Oximetry 98 96 05/11/18 21:20 05/11/18 23:00 05/11/18 23:30 Temperature 98.8 F Pulse Rate 67 71 Respiratory Rate 18 Blood Pressure 140/69 Pulse Oximetry 98 98 05/12/18 03:00 05/12/18 03:39 05/12/18 04:35 Temperature 98.3 F Pulse Rate 67 74 Respiratory Rate 18 18 Blood Pressure 148/83 H Pulse Oximetry 96 05/12/18 07:00 05/12/18 07:44 05/12/18 08:00 Temperature 97.6 F Pulse Rate 70 Respiratory Rate 20 Blood Pressure 160/98 H Pulse Oximetry 94 L 94 L 94 L Intake & Output 05/11/18 05/12/18 05/12/18 18:59 06:59 18:59 Intake Total 970 / 970 240 / 240 Output Total 850 / 850 1550 / 1550 Balance 120 / 120 -1310 / -1310 Weight 90 kg Intake: IV 250 / 250 Cardene Inj 25 MG In NS Inj 240 250 / 250 ML @ 5 MG/HR 50 mls/hr IV.CONT TITRATE PRN Rx#:[id number] Oral 720 / 720 240 / 240 Output: Urine 850 / 850 1550 / 1550 Other: Date of Last Bowel Movement 05/12/18 05/12/18 # Bowel Movements 0 1 Physical Exam: Abdomen soft nontender nondistended Palpable femoral pulses bilaterally Laboratory Results - last 24 hr 05/11/18 05/12/18 05/12/18 10:15 03:26 03:26 WBC 9.5 RBC 4.18 L Hgb 13.9 Hct 40.1 MCV 95.8 MCH 33.3 MCHC 34.8 RDW 13.3 Plt Count 431 MPV 8.2 Neut % (Auto) 67.9 Lymph % (Auto) 15.2 [place] % (Auto) 11.6 H Eos % (Auto) 4.5 H Baso % (Auto) 0.8 Neut # (Auto) 6.5 Lymph # (Auto) 1.5 [place] # (Auto) 1.1 H Eos # (Auto) 0.4 Baso # (Auto) 0.1 WBC Differential . Differential Comment Auto diff final Sodium 139 Potassium 4.1 Chloride 105 Carbon Dioxide 25.8 Anion Gap 8 BUN 18 Creatinine 1.35 H Estimated GFR 55 L Random Glucose 100 Lactic Acid 2.0 Calcium 8.7 Phosphorus 3.1 Magnesium 2.4 Assessment and Plan - Assessment (1) Hypertensive crisis Code(s): I16.9 - Hypertensive crisis, unspecified Status: Acute (2) Dissecting aneurysm of thoracic aorta, [place] type B Code(s): I71.01 - Dissection of thoracic aorta Status: Acute - Plan uncomplicated acute type B dissection 3 episodes of hypotension overnight requiring IV as needed medication Patient remains a symptom Continue to adjust blood pressure medication to better control the patient's blood pressure. Surgical intervention is warranted if medical treatment failed. Patient's is very frustrated and agitated. He has been inappropriate to nursing staff multiple times overnight. He has been threatening to leave the hospital AGAINST MEDICAL ADVICE. I had a discussion with him this morning and explained to him the severity of his medical condition. He seems somewhat receptive and agrees to stay in the hospital. Waqar Jarrell MD [facility] [phone]
[2018-05-12] MEDS: Morphine Inj 4 MG/ML Vial IV.PUSH PRN ×3 (11:22→19:27)
[2018-05-12] MEDS: hydrALAZINE HCl Inj 20 MG/ML Vial IV.PUSH PRN (14:43)
[2018-05-12] MEDS: hydrALAZINE 10 MG Tablet PO SCH (18:00)
[2018-05-13] MEDS: Morphine Inj 4 MG/ML Vial IV.PUSH PRN ×5 (04:29→21:37)
[2018-05-13] MEDS: Chlorhexidine Gluconate 2% 1 Pack (2 Cloths) TOPICAL SCH (04:30)
[2018-05-13 06:11] LABS: Baso # (Auto) 0.1 th/mm3 (0.0-0.2); Baso % (Auto) 0.7 % (0.0-2.0); Eos # (Auto) 0.5 th/mm3 (0.0-0.4); Eos % (Auto) 5.8 % (0.0-4.0); Hematocrit 38.2 % (39.0-51.0); Hemoglobin 13.1 gm/dL (13.0-17.0); Lymph # (Auto) 1.5 th/mm3 (1.0-4.8); Lymph % (Auto) 16.9 % (9.0-44.0); Mean Corpuscular HGB Conc 34.2 % (32.0-36.0); Mean Corpuscular Hemoglobin 32.6 pg (27.0-34.0); Mean Corpuscular Volume 95.3 fL (80.0-100.0); Mean Platelet Volume 7.1 fL (7.0-11.0); Mono # (Auto) 1.2 th/mm3 (0.0-0.9); Mono % (Auto) 14.3 % (0.0-8.0); Neut # (Auto) 5.4 th/mm3 (1.8-7.7); Neut % (Auto) 62.3 % (16.0-70.0); Platelet Count 464 th/mm3 (150-450); Red Blood Count 4.01 mil/mm3 (4.50-5.90); Red Cell Distribution Width 13.4 % (11.6-17.2); White Blood Count 8.6 th/mm3 (4.0-11.0)
[2018-05-13 06:28] LABS: Carbon Dioxide 24.9 meq/L (21.0-32.0); Magnesium 2.4 mg/dL (1.5-2.5); Potassium 4.1 meq/L (3.5-5.1)
[2018-05-13] MEDS ORDERED: Sodium Chlor 0.9% Inj 500 ML IV.SIG ONE (06:35)
--- NOTE | 2018-05-13 06:42 | P.PNCC ---
Subjective Subjective Remarks/Hospital Course: Patient is 53-year-old male here with past medical history significant for hypertension, dyslipidemia recently diagnosed type B aortic dissection (on ) who presented to the emergency department today for evaluation of elevated blood pressure, and back pain. The patient stated that he was admitted to the [facility] from 05/04/18 for similar complaints and had been diagnosed with hypertensive emergency and type B dissection of the aorta. Records from [facility] reviewed, CT of the chest abdomen pelvis showed aortic dissection involving the thoracic and abdominal aorta extending from distal arch, distal to the origin of left subclavian artery to the left common iliac artery. CT surgery was consulted at [facility] and recommended medical management. He left AMA yesterday because in his opinion his blood pressure and pain was not adequately controlled. Initial blood pressures in the ED was 227/103. Patient was given 20 mg IV labetalol. Because of uncontrolled hypertension and recent type B dissection critical care medicine was requested to admit the patient. I evaluated the patient in the ED. His blood pressure is slightly better controlled however patient appears in obvious discomfort due to pain. He will be admitted to the ICU started on Cardene infusion along with PRN and scheduled labetalol. Cardiothoracic surgery will be reconsulted after getting aortic CT angiogram repeated. 05/10: Patient resting in bed in no acute distress. States his "back pain" is much improved. Blood pressure much improved on nicardipine drip. Requesting diet. 05/11: Remains on nicardipine drip at 5 mg an hour. Requesting advance diet from clear liquids currently. Discussed with patient increasing medication dosages. Back pain much improved. 05/12: Patient has been off cardene gtt since 1 PM yesterday, hypertensive overnight, requiring multiple PRNs. The patient expresses frustration this morning that he is still in the hospital, states that he wants to go home. Otherwise offers no complaints. 05/13: Patient's BP control continues to be difficult. Creatinine trending up over the past 2 days, will hold lisinopril and increase amlodipine. Started patient on PO hydralazine yesterday afternoon as well, continues on PO labetalol and requires frequent PRNs for hypertension. The patient complains of lower back pain and says that he "wants to go home as soon as possible". Objective Vital Signs / I&O: Vital Signs 05/12/18 07:00 05/12/18 07:44 05/12/18 08:00 Temperature 97.6 F Pulse Rate 70 Respiratory Rate 20 Blood Pressure 160/98 H Pulse Oximetry 94 L 94 L 94 L 05/12/18 11:00 05/12/18 12:06 05/12/18 15:15 Temperature 98.6 F Pulse Rate 69 79 Respiratory Rate 20 20 Blood Pressure 140/79 Pulse Oximetry 97 05/12/18 15:16 05/12/18 19:00 05/12/18 20:00 Temperature 97.8 F 97.6 F Pulse Rate 74 79 Respiratory Rate 20 18 18 Blood Pressure 157/89 H 170/77 H Pulse Oximetry 97 96 05/12/18 23:00 05/13/18 00:00 05/13/18 03:00 Temperature 98 F 97.8 F Pulse Rate 83 61 Respiratory Rate 20 20 18 Blood Pressure 165/69 H 126/67 Pulse Oximetry 98 97 05/13/18 04:00 Temperature Pulse Rate Respiratory Rate 18 Blood Pressure Pulse Oximetry Intake & Output 05/12/18 05/12/18 05/13/18 06:59 18:59 06:59 Intake Total 240 / 240 1000 / 1000 Output Total 1550 / 1550 825 / 825 Balance -1310 / -1310 175 / 175 Weight 90 kg Intake: Oral 240 / 240 1000 / 1000 Output: Urine 1550 / 1550 825 / 825 Other: Date of Last Bowel Movement 05/12/18 05/12/18 05/12/18 # Bowel Movements 1 0 Result Diagrams: 05/13/18 05:17 05/13/18 05:17 Objective Remarks: GENERAL: Well-appearing, no acute distress, sitting up at the side of the bed SKIN: No rashes or lesions HEAD: NCAT EYES: PERRL ENT: Mucous membranes pink and moist. NECK: Trachea midline. CARDIOVASCULAR: Regular rate and rhythm. BP currently 160s/80s. RESPIRATORY: Clear to auscultation. Breath sounds equal bilaterally. GASTROINTESTINAL: Abdomen soft, non-tender, nondistended. MUSCULOSKELETAL: No peripheral edema NEUROLOGICAL: Awake and alert. No obvious cranial nerve deficits. Motor grossly within normal limits. Normal speech. PSYCHIATRIC: Minimally agitated but cooperative with exam, appears frustrated Assessment and Plan - Assessment and Plan Plan: NEURO/Psych: Cannabinoids use Acute back pain -Pain controlled with hydrocodone/acetaminophen 7.5/325 2 tablets every 6 hours as needed -Morphine 2 mg PRN breakthrough pain -Xanax PRN agitation/ anxiety -Urine drug screen -positive cannabinoids RESP: Tobaccoism -Incentive spirometry while awake -Albuterol aerosols every 2 hours as needed -Add nicotine patch -Tobacco cessation counseling CV: Hypertensive emergency Type B aortic dissection History of hypertension History of dyslipidemia -Patient is being followed by Dr. Jarrell of CT surgery -Repeat CT angiogram of the aorta: Aortic dissection begins just beyond the origin of the left subclavian artery. The true lumen channel is fairly diminutive in the proximal descending thoracic region. In the abdomen, the celiac, SMA and renal arteries arise from the true lumen. There is moderate proximal stenotic disease in the renal arteries bilaterally. The aortic true lumen becomes quite small in the distal abdominal aorta and the LUBNA arises from the false lumen. The right iliac arises from the true lumen and continues widely patent through the right pelvis. On the left side, the true lumen occludes in the mid common region with flow continuing into the internal and external iliacs at false lumen opacity. There is no evidence of aneurysmal dilatation. -Previous CT angiogram showed type B dissection involving descending aorta distal to the arch extending into the abdominal aorta -Labetalol 400 mg p.o. twice daily, IV labetalol 10 mg IV every hour PRN for SBP more than 150 mmHg -Hydralazine 10 mg p.o. TID, IV hydralazine 20 mg IV q4h PRN SBP >150 mmHg if labetalol has already been given -Hold lisinopril due to acute kidney injury (see below) -Increase amlodipine to 10 mg qday -If patient continues to be hypertensive after these changes, will also add PO clonidine as well -Cardene gtt has been off since the afternoon of 05/11 GI: Hypoalbuminemia -Cardiac diet -Docusate sodium/senna 1 tablet twice daily for bowel regimen Renal/: -Monitor renal function closely, creatinine continues to trend up (now 1.70 up from 1.2 on admission) -Hold lisinopril for now -Gentle IV hydration -Urine output continues to be adequate ID: -No active issues HEME: -No active issues FEN/ENDO: Hypokalemia -Electrolyte replacement per protocol MSK: Elevated BMI -Weight loss encouraged PROPH: -Bilateral lower extremity SCDs -Start SQH today -No indication for stress ulcer prophylaxis as patient is tolerating PO. LINES: -Peripheral IVs Up and out of bed as tolerated OVERALL: This patient remains critically ill but stable. He requires continued ICU level of care. Level 2 follow-up To help prompt me to consider important information that might be impacting today's encounter and assessment, information from prior notes written by myself or my colleagues may have been "brought forward" into today's note. My signature on this note, however, is an attestation that I personally performed the exam, history, and/or decision-making noted today, and, unless otherwise indicated, the interactions with patient, family, and staff as well as the review of records all occurred today. I also attest that the listed assessment and stated plan reflect my best clinical judgment today based on the combination of historical information, prior notes, and today's exam/ interactions. Code Status: Full
--- NOTE | 2018-05-13 07:51 | P.PNVS ---
Subjective Subjective/Hospital Course: Denies back pain bp is better controlled but remains hard to control Objective Vital Signs / I&O: Vital Signs 05/12/18 08:00 05/12/18 11:00 05/12/18 12:06 Temperature 98.6 F Pulse Rate 69 Respiratory Rate 20 20 Blood Pressure 140/79 Pulse Oximetry 94 L 97 05/12/18 15:15 05/12/18 15:16 05/12/18 19:00 Temperature 97.8 F 97.6 F Pulse Rate 79 74 79 Respiratory Rate 20 18 Blood Pressure 157/89 H 170/77 H Pulse Oximetry 97 05/12/18 20:00 05/12/18 23:00 05/13/18 00:00 Temperature 98 F Pulse Rate 83 Respiratory Rate 18 20 20 Blood Pressure 165/69 H Pulse Oximetry 96 98 05/13/18 03:00 05/13/18 04:00 Temperature 97.8 F Pulse Rate 61 Respiratory Rate 18 18 Blood Pressure 126/67 Pulse Oximetry 97 Intake & Output 05/12/18 05/13/18 05/13/18 18:59 06:59 18:59 Intake Total 1000 / 1000 500 / 500 Output Total 825 / 825 1700 / 1700 Balance 175 / 175 -1200 / -1200 Weight 91.2 kg Intake: Oral 1000 / 1000 500 / 500 Output: Urine 825 / 825 1700 / 1700 Other: Date of Last Bowel Movement 05/12/18 05/12/18 # Bowel Movements 0 0 Physical Exam: abdomen NT , ND femoral pulses palpable Laboratory Results - last 24 hr 05/13/18 05/13/18 05:17 05:17 WBC 8.6 RBC 4.01 L Hgb 13.1 Hct 38.2 L MCV 95.3 MCH 32.6 MCHC 34.2 RDW 13.4 Plt Count 464 H MPV 7.1 Neut % (Auto) 62.3 Lymph % (Auto) 16.9 [place] % (Auto) 14.3 H Eos % (Auto) 5.8 H Baso % (Auto) 0.7 Neut # (Auto) 5.4 Lymph # (Auto) 1.5 [place] # (Auto) 1.2 H Eos # (Auto) 0.5 H Baso # (Auto) 0.1 WBC Differential . Differential Comment Auto diff final Sodium 138 Potassium 4.1 Chloride 105 Carbon Dioxide 24.9 Anion Gap 8 BUN 21 H Creatinine 1.70 H Estimated GFR 42 L Random Glucose 92 Calcium 9.0 Magnesium 2.4 Assessment and Plan - Assessment (1) Hypertensive crisis Code(s): I16.9 - Hypertensive crisis, unspecified Status: Acute (2) Dissecting aneurysm of thoracic aorta, [place] type B Code(s): I71.01 - Dissection of thoracic aorta Status: Acute - Plan uncomplicated acute type B dissection one episodes of hypertension overnight requiring IV as needed medication Patient remains asymptomatic BP is better but remains difficult to control Acute kidney injury, ? etiology, doubt malperfusion GABRIEL inhibitor discontinued. fluid bolus given Will continue medical management Repeat CTA in am Plan TEVAR/ left Carotid-subclavian bypass on if BP remains difficult to control Waqar Jarrell MD [facility] [phone]
[2018-05-13] MEDS: Heparin - SQ 10,000 UNITS/ML Vial SQ SCH ×3 (08:04→21:18)
[2018-05-13] MEDS: hydrALAZINE 10 MG Tablet PO SCH ×3 (08:55→17:08)
[2018-05-13] MEDS: Labetalol 200 MG Tablet PO SCH ×2 (08:55→21:17)
[2018-05-13] MEDS: amLODIPine 5 MG Tablet PO SCH (08:55)
[2018-05-13] MEDS: Senna/Docusate Sodium 8.6/50 MG Tablet PO SCH ×2 (08:55→21:19)
[2018-05-14 05:27] LABS: Baso # (Auto) 0.1 th/mm3 (0.0-0.2); Baso % (Auto) 1.5 % (0.0-2.0); Eos # (Auto) 0.4 th/mm3 (0.0-0.4); Eos % (Auto) 4.7 % (0.0-4.0); Hematocrit 36.8 % (39.0-51.0); Hemoglobin 12.7 gm/dL (13.0-17.0); Lymph # (Auto) 1.5 th/mm3 (1.0-4.8); Lymph % (Auto) 18.2 % (9.0-44.0); Mean Corpuscular HGB Conc 34.7 % (32.0-36.0); Mean Corpuscular Hemoglobin 32.6 pg (27.0-34.0); Mean Corpuscular Volume 94.1 fL (80.0-100.0); Mean Platelet Volume 7.5 fL (7.0-11.0); Mono % (Auto) 12.7 % (0.0-8.0); Neut % (Auto) 62.9 % (16.0-70.0); Platelet Count 440 th/mm3 (150-450); Red Blood Count 3.91 mil/mm3 (4.50-5.90); Red Cell Distribution Width 13.2 % (11.6-17.2)
[2018-05-14 05:57] LABS: Calcium 8.7 mg/dL (8.5-10.1); Carbon Dioxide 23.7 meq/L (21.0-32.0); Magnesium 2.4 mg/dL (1.5-2.5); Potassium 4.4 meq/L (3.5-5.1)
[2018-05-14] MEDS: Chlorhexidine Gluconate 2% 1 Pack (2 Cloths) TOPICAL SCH (06:25)
[2018-05-14] MEDS: Heparin - SQ 10,000 UNITS/ML Vial SQ SCH ×3 (06:25→21:38)
[2018-05-14] MEDS ORDERED: Sodium Chlor 0.9% Inj 500 ML IV.SIG ONE (08:00)
[2018-05-14] MEDS: hydrALAZINE 10 MG Tablet PO SCH ×3 (08:12→18:04)
[2018-05-14] MEDS: Labetalol 200 MG Tablet PO SCH ×2 (08:12→21:37)
[2018-05-14] MEDS: amLODIPine 5 MG Tablet PO SCH (08:12)
[2018-05-14] MEDS: Senna/Docusate Sodium 8.6/50 MG Tablet PO SCH ×2 (08:12→21:37)
[2018-05-14] MEDS: Sod Chloride 0.9% Inj 1,000 ML IV.SIG SCH (08:16)
--- NOTE | 2018-05-14 09:03 | P.PNVS ---
Subjective Subjective/Hospital Course: pain resolved BP controlled Objective Vital Signs / I&O: Vital Signs 05/13/18 11:00 05/13/18 15:00 05/13/18 20:00 Temperature 98.7 F 98.6 F 98.4 F Pulse Rate 64 67 63 Respiratory Rate 20 18 20 Blood Pressure 120/84 160/77 H 159/96 H Pulse Oximetry 99 100 96 05/14/18 00:00 05/14/18 04:00 05/14/18 07:00 Temperature 98.4 F 98.7 F Pulse Rate 61 58 L 69 Respiratory Rate 20 18 14 Blood Pressure 140/74 105/51 L 149/83 H Pulse Oximetry 98 96 99 05/14/18 08:41 05/14/18 08:43 Temperature Pulse Rate Respiratory Rate 14 Blood Pressure Pulse Oximetry 99 Intake & Output 05/13/18 05/14/18 05/14/18 18:59 06:59 18:59 Intake Total 1050 / 1050 1060 / 1060 1000 / 1000 Output Total 1275 / 1275 1500 / 1500 Balance -225 / -225 -440 / -440 1000 / 1000 Weight 90 kg Intake: IV 1000 / 1000 NS Inj 500 ML @ Wide Open IV. 500 / 500 SIG BOLUS ONE Rx#:[id number] Oral 1050 / 1050 1060 / 1060 Output: Urine 1275 / 1275 1500 / 1500 Other: Date of Last Bowel Movement 05/12/18 05/12/18 05/13/18 # Bowel Movements 0 1 Physical Exam: abdomen soft femoral pulses palpable Laboratory Results - last 24 hr 05/14/18 05/14/18 03:41 03:41 WBC 8.0 RBC 3.91 L Hgb 12.7 L Hct 36.8 L MCV 94.1 MCH 32.6 MCHC 34.7 RDW 13.2 Plt Count 440 MPV 7.5 Neut % (Auto) 62.9 Lymph % (Auto) 18.2 [place] % (Auto) 12.7 H Eos % (Auto) 4.7 H Baso % (Auto) 1.5 Neut # (Auto) 5.0 Lymph # (Auto) 1.5 [place] # (Auto) 1.0 H Eos # (Auto) 0.4 Baso # (Auto) 0.1 WBC Differential . Differential Comment Auto diff final Sodium 138 Potassium 4.4 Chloride 105 Carbon Dioxide 23.7 Anion Gap 9 BUN 24 H Creatinine 1.79 H Estimated GFR 40 L Random Glucose 70 L Calcium 8.7 Magnesium 2.4 Assessment and Plan - Assessment (1) Hypertensive crisis Code(s): I16.9 - Hypertensive crisis, unspecified Status: Acute (2) Dissecting aneurysm of thoracic aorta, [place] type B Code(s): I71.01 - Dissection of thoracic aorta Status: Acute - Plan uncomplicated acute type B dissection one episodes of hypertension overnight requiring IV as needed medication Patient remains asymptomatic BP is well controlled with po clonidine CARLOS: ? etiology. Cr remains elevated. will start IVF and repeat in am Will hold off CTA today due to patient kidney function Waqar Jarrell MD [facility] [phone]
[2018-05-14] MEDS: Morphine Inj 4 MG/ML Vial IV.PUSH PRN ×2 (10:30→20:20)
--- NOTE | 2018-05-14 11:49 | P.PNCC ---
Subjective Subjective Remarks/Hospital Course: Patient is 53-year-old male here with past medical history significant for hypertension, dyslipidemia recently diagnosed type B aortic dissection (on ) who presented to the emergency department today for evaluation of elevated blood pressure, and back pain. The patient stated that he was admitted to the [facility] from 05/04/18 for similar complaints and had been diagnosed with hypertensive emergency and type B dissection of the aorta. Records from [facility] reviewed, CT of the chest abdomen pelvis showed aortic dissection involving the thoracic and abdominal aorta extending from distal arch, distal to the origin of left subclavian artery to the left common iliac artery. CT surgery was consulted at [facility] and recommended medical management. He left AMA yesterday because in his opinion his blood pressure and pain was not adequately controlled. Initial blood pressures in the ED was 227/103. Patient was given 20 mg IV labetalol. Because of uncontrolled hypertension and recent type B dissection critical care medicine was requested to admit the patient. I evaluated the patient in the ED. His blood pressure is slightly better controlled however patient appears in obvious discomfort due to pain. He will be admitted to the ICU started on Cardene infusion along with PRN and scheduled labetalol. Cardiothoracic surgery will be reconsulted after getting aortic CT angiogram repeated. 05/10: Patient resting in bed in no acute distress. States his "back pain" is much improved. Blood pressure much improved on nicardipine drip. Requesting diet. 05/11: Remains on nicardipine drip at 5 mg an hour. Requesting advance diet from clear liquids currently. Discussed with patient increasing medication dosages. Back pain much improved. 05/12: Patient has been off cardene gtt since 1 PM yesterday, hypertensive overnight, requiring multiple PRNs. The patient expresses frustration this morning that he is still in the hospital, states that he wants to go home. Otherwise offers no complaints. 05/13: Patient's BP control continues to be difficult. Creatinine trending up over the past 2 days, will hold lisinopril and increase amlodipine. Started patient on PO hydralazine yesterday afternoon as well, continues on PO labetalol and requires frequent PRNs for hypertension. The patient complains of lower back pain and says that he "wants to go home as soon as possible". 05/14: BP better controlled overnight after adding PO clonidine. The patient reported some back pain at night but none during my exam. He appears to be in better spirits this morning and is not currently agitated. Objective Vital Signs / I&O: Vital Signs 05/13/18 15:00 05/13/18 20:00 05/14/18 00:00 Temperature 98.6 F 98.4 F Pulse Rate 67 63 61 Respiratory Rate 18 20 20 Blood Pressure 160/77 H 159/96 H 140/74 Pulse Oximetry 100 96 98 05/14/18 04:00 05/14/18 07:00 05/14/18 08:41 Temperature 98.4 F 98.7 F Pulse Rate 58 L 69 Respiratory Rate 18 14 Blood Pressure 105/51 L 149/83 H Pulse Oximetry 96 99 99 05/14/18 08:43 05/14/18 09:32 05/14/18 11:00 Temperature 98.7 F Pulse Rate 58 L Respiratory Rate 14 16 Blood Pressure 124/54 L Pulse Oximetry 99 97 Intake & Output 05/13/18 05/14/18 05/14/18 18:59 06:59 18:59 Intake Total 1050 / 1050 1060 / 1060 1000 / 1000 Output Total 1275 / 1275 1500 / 1500 Balance -225 / -225 -440 / -440 1000 / 1000 Weight 90 kg Intake: IV 1000 / 1000 NS Inj 500 ML @ Wide Open IV. 500 / 500 SIG BOLUS ONE Rx#:[id number] Oral 1050 / 1050 1060 / 1060 Output: Urine 1275 / 1275 1500 / 1500 Other: Date of Last Bowel Movement 05/12/18 05/12/18 05/13/18 # Bowel Movements 0 1 Result Diagrams: 05/14/18 03:41 05/14/18 03:41 Objective Remarks: GENERAL: Well-appearing, out of bed in chair SKIN: No rashes or lesions HEAD: NCAT EYES: PERRL ENT: Mucous membranes pink and moist. NECK: Trachea midline. CARDIOVASCULAR: Regular rate and rhythm. BP currently 120s/80s. RESPIRATORY: Clear to auscultation. Breath sounds equal bilaterally. GASTROINTESTINAL: Abdomen soft, non-tender, non-distended. MUSCULOSKELETAL: No peripheral edema NEUROLOGICAL: Awake and alert. Answers questions appropriately. Motor grossly within normal limits. PSYCHIATRIC: Calm, appropriate affect Assessment and Plan - Assessment and Plan Plan: NEURO/Psych: Cannabinoids use Acute back pain -Pain controlled with hydrocodone/acetaminophen 7.5/325 2 tablets every 6 hours as needed -Morphine 2 mg PRN breakthrough pain -Xanax PRN agitation/ anxiety -Urine drug screen -positive cannabinoids RESP: Tobaccoism -Incentive spirometry while awake -Albuterol aerosols every 2 hours as needed -Nicotine patch -Tobacco cessation counseling CV: Hypertensive emergency Type B aortic dissection History of hypertension History of dyslipidemia -Patient is being followed by Dr. Jarrell of CT surgery -Repeat CT angiogram of the aorta: Aortic dissection begins just beyond the origin of the left subclavian artery. The true lumen channel is fairly diminutive in the proximal descending thoracic region. In the abdomen, the celiac, SMA and renal arteries arise from the true lumen. There is moderate proximal stenotic disease in the renal arteries bilaterally. The aortic true lumen becomes quite small in the distal abdominal aorta and the LUBNA arises from the false lumen. The right iliac arises from the true lumen and continues widely patent through the right pelvis. On the left side, the true lumen occludes in the mid common region with flow continuing into the internal and external iliacs at false lumen opacity. There is no evidence of aneurysmal dilatation. -Previous CT angiogram showed type B dissection involving descending aorta distal to the arch extending into the abdominal aorta -Labetalol 400 mg p.o. twice daily, IV labetalol 10 mg IV every hour PRN for SBP more than 150 mmHg -Hydralazine 10 mg p.o. TID, IV hydralazine 20 mg IV q4h PRN SBP >150 mmHg if labetalol has already been given -Hold lisinopril due to acute kidney injury (see below) -Continue amlodipine to 10 mg qday -PO clonidine 0.2 mg BID -Cardene gtt has been off since the afternoon of 05/11 -May need repeat CTA tomorrow if BUN/ creat improves as per vascular surgery GI: Hypoalbuminemia -Cardiac diet -Docusate sodium/senna 1 tablet twice daily for bowel regimen Renal/: -Monitor renal function closely, creatinine continues to trend up (now 1.79 up from 1.2 on admission) -Continue to hold lisinopril -Gentle IV hydration -Urine output continues to be adequate, net negative since admission ID: -No active issues HEME: -No active issues FEN/ENDO: Hypokalemia -Electrolyte replacement per protocol MSK: Elevated BMI -Weight loss encouraged PROPH: -SCDs, SQH -No indication for stress ulcer prophylaxis as patient is tolerating PO. LINES: -Peripheral IVs Up and out of bed as tolerated OVERALL: Patient can be downgraded to intermediate level of care if ok with vascular Level 2 follow-up To help prompt me to consider important information that might be impacting today's encounter and assessment, information from prior notes written by myself or my colleagues may have been "brought forward" into today's note. My signature on this note, however, is an attestation that I personally performed the exam, history, and/or decision-making noted today, and, unless otherwise indicated, the interactions with patient, family, and staff as well as the review of records all occurred today. I also attest that the listed assessment and stated plan reflect my best clinical judgment today based on the combination of historical information, prior notes, and today's exam/ interactions. Code Status: Full
[2018-05-15] MEDS: Sod Chloride 0.9% Inj 1,000 ML IV.SIG SCH ×3 (00:41→19:52)
[2018-05-15] MEDS: Morphine Inj 4 MG/ML Vial IV.PUSH PRN ×4 (04:08→19:51)
[2018-05-15 04:49] LABS: Baso # (Auto) 0.1 th/mm3 (0.0-0.2); Baso % (Auto) 1.2 % (0.0-2.0); Eos # (Auto) 0.4 th/mm3 (0.0-0.4); Eos % (Auto) 5.9 % (0.0-4.0); Hematocrit 37.7 % (39.0-51.0); Hemoglobin 12.4 gm/dL (13.0-17.0); Lymph # (Auto) 1.7 th/mm3 (1.0-4.8); Lymph % (Auto) 21.9 % (9.0-44.0); Mean Corpuscular Hemoglobin 32.1 pg (27.0-34.0); Mean Corpuscular Volume 97.2 fL (80.0-100.0); Mean Platelet Volume 7.3 fL (7.0-11.0); Mono # (Auto) 0.9 th/mm3 (0.0-0.9); Mono % (Auto) 12.1 % (0.0-8.0); Neut # (Auto) 4.5 th/mm3 (1.8-7.7); Neut % (Auto) 58.9 % (16.0-70.0); Platelet Count 412 th/mm3 (150-450); Red Blood Count 3.88 mil/mm3 (4.50-5.90); Red Cell Distribution Width 13.6 % (11.6-17.2); White Blood Count 7.6 th/mm3 (4.0-11.0)
[2018-05-15 05:11] LABS: Calcium 8.5 mg/dL (8.5-10.1); Carbon Dioxide 22.4 meq/L (21.0-32.0); Magnesium 2.4 mg/dL (1.5-2.5); Potassium 4.5 meq/L (3.5-5.1)
[2018-05-15] MEDS: Heparin - SQ 10,000 UNITS/ML Vial SQ SCH ×3 (06:52→22:03)
--- NOTE | 2018-05-15 07:55 | P.PNVS ---
Subjective Subjective/Hospital Course: patient agitated this am and wants to leave AMA BP controlled Objective Vital Signs / I&O: Vital Signs 05/14/18 08:41 05/14/18 08:43 05/14/18 09:32 Temperature Pulse Rate Respiratory Rate 14 Blood Pressure Pulse Oximetry 99 99 05/14/18 11:00 05/14/18 13:00 05/14/18 15:00 Temperature 98.7 F 98.6 F Pulse Rate 58 L 74 Respiratory Rate 16 16 Blood Pressure 124/54 L 143/81 H Pulse Oximetry 97 97 98 05/14/18 17:00 05/14/18 20:00 05/15/18 00:00 Temperature 98.5 F Pulse Rate 66 56 L Respiratory Rate 20 18 Blood Pressure 173/85 H 134/72 Pulse Oximetry 98 97 96 05/15/18 04:00 Temperature 98.7 F Pulse Rate 56 L Respiratory Rate 20 Blood Pressure 151/74 H Pulse Oximetry 95 Intake & Output 05/14/18 05/15/18 05/15/18 18:59 06:59 18:59 Intake Total 1720 / 1720 1960 / 1960 Output Total 950 / 950 1850 / 1850 Balance 770 / 770 110 / 110 Weight 90 kg Intake: IV 1000 / 1000 1000 / 1000 NS Inj 1,000 ML @ 75 mls/hr IV. 1000 / 1000 SIG .[id number] [facility] Rx#:[id number] NS Inj 500 ML @ Wide Open IV. 500 / 500 SIG BOLUS ONE Rx#:[id number] Oral 720 / 720 960 / 960 Output: Urine 950 / 950 1850 / 1850 Other: Date of Last Bowel Movement 05/13/18 05/12/18 # Bowel Movements 0 Physical Exam: abdomen is soft NT ND Laboratory Results - last 24 hr 05/15/18 05/15/18 03:30 03:30 WBC 7.6 RBC 3.88 L Hgb 12.4 L Hct 37.7 L MCV 97.2 MCH 32.1 MCHC 33.0 RDW 13.6 Plt Count 412 MPV 7.3 Neut % (Auto) 58.9 Lymph % (Auto) 21.9 [place] % (Auto) 12.1 H Eos % (Auto) 5.9 H Baso % (Auto) 1.2 Neut # (Auto) 4.5 Lymph # (Auto) 1.7 [place] # (Auto) 0.9 Eos # (Auto) 0.4 Baso # (Auto) 0.1 WBC Differential . Differential Comment Auto diff final Sodium 139 Potassium 4.5 Chloride 108 H Carbon Dioxide 22.4 Anion Gap 9 BUN 24 H Creatinine 1.82 H Estimated GFR 39 L Random Glucose 85 Calcium 8.5 Magnesium 2.4 Assessment and Plan - Assessment (1) Hypertensive crisis Code(s): I16.9 - Hypertensive crisis, unspecified Status: Acute (2) Dissecting aneurysm of thoracic aorta, [place] type B Code(s): I71.01 - Dissection of thoracic aorta Status: Acute - Plan uncomplicated acute type B dissection one episodes of hypertension overnight requiring IV as needed medication Patient remains asymptomatic BP is well controlled with po clonidine CARLOS: ? etiology. Cr remains elevated but seems stabilizing Will hold off CTA today due to patient kidney function ok to transfer to floor Waqar Jarrell MD [facility] [phone]
[2018-05-15] MEDS: amLODIPine 5 MG Tablet PO SCH (08:49)
[2018-05-15] MEDS: hydrALAZINE 10 MG Tablet PO SCH ×3 (08:50→18:29)
[2018-05-15] MEDS: Senna/Docusate Sodium 8.6/50 MG Tablet PO SCH ×2 (08:50→20:00)
[2018-05-15] MEDS: Labetalol 200 MG Tablet PO SCH ×2 (08:50→19:59)
--- NOTE | 2018-05-15 19:12 | P.PNIM ---
Subjective Interval history: Follow up for Type Aortic dissection. Patient is currently doing well. Denies any chest pain, shortness of breath or fever. He does complain of lower extremity pain. Physical Exam Vital signs: Vital Signs 05/14/18 20:00 05/15/18 00:00 05/15/18 04:00 Temperature 98.5 F 98.7 F Pulse Rate 66 56 L 56 L Respiratory Rate 20 18 20 Blood Pressure 173/85 H 134/72 151/74 H Pulse Oximetry 97 96 95 05/15/18 07:00 05/15/18 10:00 05/15/18 11:00 Temperature 98.6 F 98.5 F Pulse Rate 61 58 L Respiratory Rate 18 16 Blood Pressure 164/94 H 145/76 H Pulse Oximetry 99 99 98 05/15/18 13:17 05/15/18 13:49 05/15/18 14:05 Temperature 97.9 F Pulse Rate 62 65 Respiratory Rate 16 Blood Pressure 153/73 H Pulse Oximetry 97 05/15/18 14:16 05/15/18 15:00 05/15/18 15:51 Temperature 97.8 F Pulse Rate 62 71 Respiratory Rate 16 Blood Pressure 155/87 H Pulse Oximetry 97 95 05/15/18 16:00 05/15/18 17:00 05/15/18 18:00 Temperature Pulse Rate 70 72 62 Respiratory Rate Blood Pressure Pulse Oximetry 97 Intake & Output 05/15/18 05/15/18 05/16/18 06:59 18:59 06:59 Intake Total 1960 / 1960 900 / 900 Output Total 1850 / 1850 800 / 800 Balance 110 / 110 100 / 100 Weight 90 kg Intake: IV 1000 / 1000 NS Inj 1,000 ML @ 75 mls/hr IV. 1000 / 1000 SIG .[id number] [facility] Rx#:[id number] Oral 960 / 960 900 / 900 Output: Urine 1850 / 1850 800 / 800 Other: Date of Last Bowel Movement 05/12/18 05/15/18 # Bowel Movements 0 1 Narrative: GENERAL: Alert, Oriented x 3, NAD. SKIN: Warm and dry. HEAD: Normocephalic. EYES: No scleral icterus. No injection or drainage. NECK: Supple, trachea midline. No JVD or lymphadenopathy. CARDIOVASCULAR: Regular rate and rhythm without murmurs, gallops, or rubs. RESPIRATORY: Breath sounds equal bilaterally. No accessory muscle use. GASTROINTESTINAL: Abdomen soft, non-tender, nondistended. MUSCULOSKELETAL: No cyanosis, or edema. BACK: Nontender without obvious deformity. No CVA tenderness. Results Labs CBC & Chem 7: 05/15/18 03:30 05/15/18 03:30 Assessment and Plan Plan Mr. Dickey is a pleasant 53 year old male with a history of hypertension, dyslipidemia recently diagnosed type B aortic dissection (on 05/04/18) who presented to the emergency department on 05/09/2018 due to elevated BP and back pain. He was recently diagnosed with type B extensive aortic dissection at [facility] but he left A. Upon arrival at [place], his BP Was 227/103 and he was admitted to ICU and started on Cardene drip. Vascular surgery was consulted. Hypertensive urgency -Amlodipine 10mg Qday, Hydralazine 10mg TID, Labetalol 400mg BID, clonidine 0.2mg BID. -BP is currently around 150s systolic. Type B Aortic dissection -Vascular surgery is following. If Creatinine improves, CTA to be done in a day or so. -Patient is currently hemodynamically stable. Acute kidney injury -Baseline creatinine appears to be normal, below 1.0 -Creatinine has gone up now to 1.82. Possibly due to contrast studies. -Per Vascular surgery, patient is on Normal saline. Will monitor BMP. Full code. Ambulation, SQ heparin. Progress Note: Quality VTE Deep Vein Thrombosis/Pulmonary Embolism Present on Admission: No
[2018-05-16] MEDS: Sod Chloride 0.9% Inj 1,000 ML IV.SIG SCH ×5 (00:53→23:57)
[2018-05-16] MEDS: Morphine Inj 4 MG/ML Vial IV.PUSH PRN ×5 (02:59→21:06)
[2018-05-16] MEDS: Heparin - SQ 10,000 UNITS/ML Vial SQ SCH ×3 (05:18→21:22)
[2018-05-16 08:11] LABS: Calcium 8.6 mg/dL (8.5-10.1); Carbon Dioxide 23.4 meq/L (21.0-32.0); Potassium 4.3 meq/L (3.5-5.1)
[2018-05-16] MEDS: hydrALAZINE HCl Inj 20 MG/ML Vial IV.PUSH PRN (08:25)
--- NOTE | 2018-05-16 08:59 | P.PNVS ---
Subjective Subjective/Hospital Course: Denies pain this morning BP controlled Tolerating diet Objective Vital Signs / I&O: Vital Signs 05/15/18 10:00 05/15/18 11:00 05/15/18 13:17 Temperature 98.5 F Pulse Rate 58 L Respiratory Rate 16 Blood Pressure 145/76 H Pulse Oximetry 99 98 97 05/15/18 13:49 05/15/18 14:05 05/15/18 14:16 Temperature 97.9 F Pulse Rate 62 65 Respiratory Rate 16 Blood Pressure 153/73 H Pulse Oximetry 97 05/15/18 15:00 05/15/18 15:51 05/15/18 16:00 Temperature 97.8 F Pulse Rate 62 71 70 Respiratory Rate 16 Blood Pressure 155/87 H Pulse Oximetry 95 05/15/18 17:00 05/15/18 18:00 05/15/18 19:00 Temperature 97.4 F L Pulse Rate 72 62 68 Respiratory Rate 16 Blood Pressure 170/71 H Pulse Oximetry 97 96 05/15/18 23:00 05/16/18 02:00 05/16/18 03:00 Temperature 98 F 98 F Pulse Rate 61 61 Respiratory Rate 16 16 Blood Pressure 150/70 H 150/70 H Pulse Oximetry 96 96 96 05/16/18 04:34 05/16/18 07:00 Temperature Pulse Rate 67 Respiratory Rate Blood Pressure Pulse Oximetry 96 Intake & Output 05/15/18 05/16/18 05/16/18 18:59 06:59 18:59 Intake Total 900 / 900 2480 / 2480 Output Total 800 / 800 900 / 900 Balance 100 / 100 1580 / 1580 Weight 90.5 kg Intake: IV 1999 NS Inj 1,000 ML @ 125 mls/hr IV 1999 .SIG .Q8H [facility] Rx#:[id number] Oral 900 / 900 480 / 480 Output: Urine 800 / 800 900 / 900 Other: Date of Last Bowel Movement 05/15/18 05/13/18 # Bowel Movements 1 Laboratory Results - last 24 hr 05/16/18 06:35 Sodium 141 Potassium 4.3 Chloride 112 H Carbon Dioxide 23.4 Anion Gap 6 BUN 21 H Creatinine 1.59 H Estimated GFR 46 L Random Glucose 74 Calcium 8.6 Assessment and Plan - Assessment (1) Hypertensive crisis Code(s): I16.9 - Hypertensive crisis, unspecified Status: Acute (2) Dissecting aneurysm of thoracic aorta, [place] type B Code(s): I71.01 - Dissection of thoracic aorta Status: Acute - Plan uncomplicated acute type B dissection one episodes of hypertension overnight requiring IV as needed medication Patient remains asymptomatic Acute kidney injury is resolving. Creatinine 1.59 Plan CTA in 1-2 days. Waqar Jarrell MD [facility] [phone]
[2018-05-16] MEDS: amLODIPine 5 MG Tablet PO SCH (09:12)
[2018-05-16] MEDS: Labetalol 200 MG Tablet PO SCH ×2 (09:12→20:54)
[2018-05-16] MEDS: hydrALAZINE 10 MG Tablet PO SCH ×3 (09:12→17:44)
[2018-05-16] MEDS: Senna/Docusate Sodium 8.6/50 MG Tablet PO SCH ×2 (09:12→20:54)
--- NOTE | 2018-05-16 16:57 | P.PNIM ---
Subjective Interval history: Patient says he is feeling well. Reports pain is controlled. Physical Exam Vital signs: Vital Signs 05/15/18 17:00 05/15/18 18:00 05/15/18 19:00 Temperature 97.4 F L Pulse Rate 72 62 68 Respiratory Rate 16 Blood Pressure 170/71 H Pulse Oximetry 97 96 05/15/18 23:00 05/16/18 02:00 05/16/18 03:00 Temperature 98 F 98 F Pulse Rate 61 61 Respiratory Rate 16 16 Blood Pressure 150/70 H 150/70 H Pulse Oximetry 96 96 96 05/16/18 04:34 05/16/18 07:00 05/16/18 07:30 Temperature 98.3 F Pulse Rate 64 Respiratory Rate 18 Blood Pressure 184/87 H 159/72 H Pulse Oximetry 96 95 05/16/18 08:00 05/16/18 09:00 05/16/18 09:59 Temperature Pulse Rate 61 64 Respiratory Rate Blood Pressure Pulse Oximetry 96 05/16/18 10:00 05/16/18 11:00 05/16/18 12:00 Temperature 98.6 F Pulse Rate 66 68 66 Respiratory Rate 18 Blood Pressure 136/65 Pulse Oximetry 96 05/16/18 13:00 05/16/18 14:00 05/16/18 15:00 Temperature 98.9 F Pulse Rate 64 62 70 Respiratory Rate 18 Blood Pressure 145/68 H Pulse Oximetry 95 05/16/18 16:00 Temperature Pulse Rate 64 Respiratory Rate Blood Pressure Pulse Oximetry Intake & Output 05/15/18 05/16/18 05/16/18 18:59 06:59 18:59 Intake Total 900 / 900 2480 / 2480 1000 / 1000 Output Total 800 / 800 900 / 900 Balance 100 / 100 1580 / 1580 1000 / 1000 Weight 90.5 kg Intake: IV 1999 1000 / 1000 NS Inj 1,000 ML @ 125 mls/hr IV 1999 1000 / 1000 .SIG .Q8H [facility] Rx#:[id number] Oral 900 / 900 480 / 480 Output: Urine 800 / 800 900 / 900 Other: Date of Last Bowel Movement 05/15/18 05/13/18 05/13/18 # Bowel Movements 1 Narrative: GENERAL: Alert, Oriented x 3, NAD. SKIN: Warm and dry. HEAD: Normocephalic. EYES: No scleral icterus. No injection or drainage. NECK: Supple, trachea midline. No JVD. CARDIOVASCULAR: Regular rate and rhythm without murmurs, gallops, or rubs. RESPIRATORY: Breath sounds equal bilaterally. No accessory muscle use. GASTROINTESTINAL: Abdomen soft, non-tender, nondistended. MUSCULOSKELETAL: No cyanosis, or edema. BACK: Nontender without obvious deformity. No CVA tenderness. Results Labs CBC & Chem 7: 05/15/18 03:30 05/16/18 06:35 Assessment and Plan Plan Mr. Dickey is a pleasant 53 year old male with a history of hypertension, dyslipidemia recently diagnosed type B aortic dissection (on 05/04/18) who presented to the emergency department on 05/09/2018 due to elevated BP and back pain. He was recently diagnosed with type B extensive aortic dissection at [facility] but he left AMA. Upon arrival at [place], his BP Was 227/103 and he was admitted to ICU and started on Cardene drip. Vascular surgery was consulted. Hypertensive urgency -Amlodipine 10mg Qday, Hydralazine 10mg TID, Labetalol 400mg BID, clonidine 0.2mg BID. -BP is currently around 150s systolic. = 05/16. Blood pressure still elevated in the 160 systolic. Will increase hydralazine. We will also stop nicotine patch. Type B Aortic dissection -Vascular surgery is following. If Creatinine improves, CTA to be done in a day or so. -Patient is currently hemodynamically stable. = Discussed with vascular surgery. We will plan to check CT angiogram tomorrow. Acute kidney injury -Baseline creatinine appears to be normal, below 1.0 -Creatinine has gone up now to 1.82. Possibly due to contrast studies. -Per Vascular surgery, patient is on Normal saline. Will monitor BMP. = Creatinine 1.5. Improving. Likely exacerbated by lisinopril previously which was discontinued Full code. Ambulation, SQ heparin. Progress Note: Quality VTE Deep Vein Thrombosis/Pulmonary Embolism Present on Admission: No
[2018-05-17] MEDS: Morphine Inj 4 MG/ML Vial IV.PUSH PRN ×5 (03:01→21:33)
[2018-05-17] MEDS: Heparin - SQ 10,000 UNITS/ML Vial SQ SCH ×3 (05:05→21:33)
[2018-05-17 05:13] LABS: Albumin 3.2 g/dL (3.4-5.0); Calcium 8.5 mg/dL (8.5-10.1); Carbon Dioxide 23.9 meq/L (21.0-32.0); Magnesium 2.4 mg/dL (1.5-2.5); Phosphorus 2.8 mg/dL (2.5-4.9); Potassium 4.1 meq/L (3.5-5.1)
[2018-05-17] MEDS: Sod Chloride 0.9% Inj 1,000 ML IV.SIG SCH ×3 (08:10→16:17)
[2018-05-17] MEDS: amLODIPine 5 MG Tablet PO SCH (08:10)
[2018-05-17] MEDS: Labetalol 200 MG Tablet PO SCH ×2 (08:10→20:25)
[2018-05-17] MEDS: hydrALAZINE 10 MG Tablet PO SCH ×2 (08:11→12:08)
[2018-05-17] MEDS: Senna/Docusate Sodium 8.6/50 MG Tablet PO SCH ×2 (08:11→20:25)
--- NOTE | 2018-05-17 09:03 | P.PNVS ---
Subjective Subjective/Hospital Course: Blood pressure is controlled for majority of the time. Patient's continues to be agitated wanting to leave the hospital. This agitation causes his blood pressure to be elevated. Objective Vital Signs / I&O: Vital Signs 05/16/18 09:59 05/16/18 10:00 05/16/18 11:00 Temperature 98.6 F Pulse Rate 66 68 Respiratory Rate 18 Blood Pressure 136/65 Pulse Oximetry 96 96 05/16/18 12:00 05/16/18 13:00 05/16/18 14:00 Temperature Pulse Rate 66 64 62 Respiratory Rate Blood Pressure Pulse Oximetry 05/16/18 15:00 05/16/18 16:00 05/16/18 17:00 Temperature 98.9 F Pulse Rate 70 64 62 Respiratory Rate 18 Blood Pressure 145/68 H Pulse Oximetry 95 05/16/18 18:00 05/16/18 19:00 05/16/18 20:00 Temperature 97.7 F Pulse Rate 63 72 59 L Respiratory Rate 18 Blood Pressure 170/83 H Pulse Oximetry 95 05/16/18 21:00 05/16/18 21:51 05/16/18 23:00 Temperature 98 F Pulse Rate 65 54 L 52 L Respiratory Rate 18 Blood Pressure 147/69 H Pulse Oximetry 97 05/17/18 00:00 05/17/18 00:52 05/17/18 02:00 Temperature Pulse Rate 57 L 54 L 52 L Respiratory Rate Blood Pressure Pulse Oximetry 05/17/18 02:49 05/17/18 02:54 05/17/18 03:00 Temperature 97.6 F Pulse Rate 55 L 58 L Respiratory Rate 18 Blood Pressure 166/59 H Pulse Oximetry 97 96 05/17/18 04:00 05/17/18 04:52 05/17/18 06:00 Temperature Pulse Rate 65 56 L 64 Respiratory Rate Blood Pressure Pulse Oximetry Intake & Output 05/16/18 05/17/18 05/17/18 18:59 06:59 18:59 Intake Total 1925 / 1925 1480 / 1480 Output Total 975 / 975 1650 / 1650 Balance 950 / 950 -170 / -170 Weight 90.4 kg Intake: IV 1000 / 1000 1000 / 1000 NS Inj 1,000 ML @ 125 mls/hr IV 1000 / 1000 1000 / 1000 .SIG .Q8H [facility] Rx#:[id number] Oral 925 / 925 480 / 480 Output: Urine 975 / 975 1650 / 1650 Other: Date of Last Bowel Movement 05/13/18 05/16/18 05/16/18 # Bowel Movements 0 Physical Exam: Abdomen soft Palpable femoral pulses Laboratory Results - last 24 hr 05/17/18 04:03 Sodium 140 Potassium 4.1 Chloride 107 Carbon Dioxide 23.9 Anion Gap 9 BUN 17 Creatinine 1.60 H Estimated GFR 45 L Random Glucose 89 Calcium 8.5 Phosphorus 2.8 Magnesium 2.4 Albumin 3.2 L Assessment and Plan - Assessment (1) Hypertensive crisis Code(s): I16.9 - Hypertensive crisis, unspecified Status: Acute (2) Dissecting aneurysm of thoracic aorta, [place] type B Code(s): I71.01 - Dissection of thoracic aorta Status: Acute - Plan uncomplicated acute type B dissection Patient remains asymptomatic Blood pressure is better controlled Acute kidney injury is resolving. Creatinine stabilizing at 1.6 Plan CTA when creatinine normalizes Waqar Jarrell MD [facility] [phone]
--- NOTE | 2018-05-17 17:09 | P.PNIM ---
Subjective Interval history: Patient is ambulating in his room. He says he wants to go home. He is bored in the hospital. No complaints of chest pain. Physical Exam Vital signs: Vital Signs 05/16/18 18:00 05/16/18 19:00 05/16/18 20:00 Temperature 97.7 F Pulse Rate 63 72 59 L Respiratory Rate 18 Blood Pressure 170/83 H Pulse Oximetry 95 05/16/18 21:00 05/16/18 21:51 05/16/18 23:00 Temperature 98 F Pulse Rate 65 54 L 52 L Respiratory Rate 18 Blood Pressure 147/69 H Pulse Oximetry 97 05/17/18 00:00 05/17/18 00:52 05/17/18 02:00 Temperature Pulse Rate 57 L 54 L 52 L Respiratory Rate Blood Pressure Pulse Oximetry 05/17/18 02:49 05/17/18 02:54 05/17/18 03:00 Temperature 97.6 F Pulse Rate 55 L 58 L Respiratory Rate 18 Blood Pressure 166/59 H Pulse Oximetry 97 96 05/17/18 04:00 05/17/18 04:52 05/17/18 06:00 Temperature Pulse Rate 65 56 L 64 Respiratory Rate Blood Pressure Pulse Oximetry 05/17/18 07:00 05/17/18 08:00 05/17/18 09:00 Temperature 97.9 F Pulse Rate 66 66 65 Respiratory Rate 18 Blood Pressure 185/88 H Pulse Oximetry 96 05/17/18 09:20 05/17/18 09:21 05/17/18 09:57 Temperature Pulse Rate 61 Respiratory Rate 18 18 Blood Pressure Pulse Oximetry 05/17/18 11:00 05/17/18 12:00 05/17/18 12:59 Temperature 97.8 F Pulse Rate 55 L 62 71 Respiratory Rate 18 Blood Pressure 155/70 H Pulse Oximetry 97 05/17/18 14:00 05/17/18 14:07 05/17/18 14:24 Temperature Pulse Rate 53 L Respiratory Rate 18 Blood Pressure Pulse Oximetry 98 05/17/18 14:41 05/17/18 15:00 05/17/18 16:00 Temperature 97.9 F Pulse Rate 51 L 59 L Respiratory Rate 18 18 Blood Pressure 151/71 H Pulse Oximetry 98 Intake & Output 05/16/18 05/17/18 05/17/18 18:59 06:59 18:59 Intake Total 1925 / 1925 1480 / 1480 Output Total 975 / 975 1650 / 1650 Balance 950 / 950 -170 / -170 Weight 90.4 kg Intake: IV 1000 / 1000 1000 / 1000 NS Inj 1,000 ML @ 125 mls/hr IV 1000 / 1000 1000 / 1000 .SIG .Q8H [facility] Rx#:[id number] Oral 925 / 925 480 / 480 Output: Urine 975 / 975 1650 / 1650 Other: Date of Last Bowel Movement 05/13/18 05/16/18 05/16/18 # Bowel Movements 0 Narrative: alert and oriented x 3 S1S2 CTA b/l Abd soft, normal bowel sounds, no abd pain no edema of exts patient is ambulatory, no neuro deficits. Results Labs CBC & Chem 7: 05/15/18 03:30 05/17/18 04:03 Assessment and Plan Plan Mr. Dickey is a pleasant 53 year old male with a history of hypertension, dyslipidemia recently diagnosed type B aortic dissection (on 05/04/18) who presented to the emergency department on 05/09/2018 due to elevated BP and back pain. He was recently diagnosed with type B extensive aortic dissection [facility] but he left [place]. Upon arrival at [place], his BP Was 227/103 and he was admitted to ICU and started on Cardene drip. Vascular surgery was consulted. 1. Hypertensive urgency On norvasc 10mg daily, increase Hydralazine 50 mg tid, Labetalol 400mg bid, Clonidine 0.2mg bid. BP currently in 150s-170s. continue to monitor 2. Type B aortic dissection 3. CARLOS Vascular surgery following, if cr improves cta will be done I will discuss the plan with [facility] surgery. Cr 1.6 as of today. f/u am labs on ivf lisinopril held. Heparin for dvt prophylaxis. Progress Note: Quality VTE Deep Vein Thrombosis/Pulmonary Embolism Present on Admission: No
[2018-05-17] MEDS: hydrALAZINE 50 MG Tablet PO SCH (17:23)
[2018-05-18] MEDS: Sod Chloride 0.9% Inj 1,000 ML IV.SIG SCH ×2 (02:41→08:23)
[2018-05-18] MEDS: Morphine Inj 4 MG/ML Vial IV.PUSH PRN ×2 (03:27→10:05)
[2018-05-18] MEDS: Heparin - SQ 10,000 UNITS/ML Vial SQ SCH ×2 (05:25→15:21)
[2018-05-18 07:52] LABS: Calcium 8.8 mg/dL (8.5-10.1); Carbon Dioxide 23.8 meq/L (21.0-32.0); Potassium 4.4 meq/L (3.5-5.1)
[2018-05-18] MEDS: amLODIPine 5 MG Tablet PO SCH (08:21)
[2018-05-18] MEDS: hydrALAZINE 50 MG Tablet PO SCH ×3 (08:21→17:20)
[2018-05-18] MEDS: Labetalol 200 MG Tablet PO SCH ×2 (08:21→20:03)
[2018-05-18] MEDS: Senna/Docusate Sodium 8.6/50 MG Tablet PO SCH ×2 (08:22→20:03)
--- NOTE | 2018-05-18 11:09 | P.PNVS ---
Subjective Subjective/Hospital Course: Blood pressure is controlled for majority of the time. Denies pain Objective Vital Signs / I&O: Vital Signs 05/17/18 12:00 05/17/18 12:59 05/17/18 14:00 Temperature Pulse Rate 62 71 53 L Respiratory Rate Blood Pressure Pulse Oximetry 05/17/18 14:07 05/17/18 14:24 05/17/18 14:41 Temperature Pulse Rate Respiratory Rate 18 18 Blood Pressure Pulse Oximetry 98 05/17/18 15:00 05/17/18 16:00 05/17/18 17:00 Temperature 97.9 F Pulse Rate 51 L 59 L 54 L Respiratory Rate 18 Blood Pressure 151/71 H Pulse Oximetry 98 05/17/18 17:47 05/17/18 17:49 05/17/18 19:00 Temperature 98 F Pulse Rate 57 L 65 Respiratory Rate 18 16 Blood Pressure 187/88 H Pulse Oximetry 97 05/17/18 20:00 05/17/18 21:00 05/17/18 22:00 Temperature Pulse Rate 70 76 64 Respiratory Rate Blood Pressure Pulse Oximetry 05/17/18 23:00 05/18/18 00:00 05/18/18 01:00 Temperature 97.8 F Pulse Rate 54 L 58 L 60 Respiratory Rate 16 Blood Pressure 167/80 H Pulse Oximetry 97 05/18/18 02:00 05/18/18 03:00 05/18/18 04:00 Temperature 98.9 F Pulse Rate 60 64 56 L Respiratory Rate 16 Blood Pressure 134/74 Pulse Oximetry 95 05/18/18 05:00 05/18/18 06:00 05/18/18 07:00 Temperature 97.9 F Pulse Rate 58 L 58 L 57 L Respiratory Rate 18 Blood Pressure 178/84 H Pulse Oximetry 98 05/18/18 08:00 05/18/18 09:00 05/18/18 10:00 Temperature Pulse Rate 61 59 L 65 Respiratory Rate Blood Pressure Pulse Oximetry 05/18/18 10:06 Temperature Pulse Rate Respiratory Rate 18 Blood Pressure Pulse Oximetry Intake & Output 05/17/18 05/18/18 05/18/18 18:59 06:59 18:59 Intake Total 1525 / 1525 1720 / 1720 1000 / 1000 Output Total 1550 / 1550 Balance 1525 / 1525 170 / 170 1000 / 1000 Weight 90.8 kg Intake: IV 1000 / 1000 1000 / 1000 NS Inj 1,000 ML @ 125 mls/hr IV 1000 / 1000 1000 / 1000 .SIG .Q8H [facility] Rx#:[id number] Oral 1525 / 1525 720 / 720 Output: Urine 1550 / 1550 Other: # Voids 8 Date of Last Bowel Movement 05/17/18 05/17/18 05/17/18 # Bowel Movements 1 Physical Exam: Abdomen soft nontender nondistended Laboratory Results - last 24 hr 05/18/18 07:07 Sodium 140 Potassium 4.4 Chloride 109 H Carbon Dioxide 23.8 Anion Gap 7 BUN 18 Creatinine 1.53 H Estimated GFR 48 L Random Glucose 76 Calcium 8.8 Assessment and Plan - Assessment (1) Hypertensive crisis Code(s): I16.9 - Hypertensive crisis, unspecified Status: Acute (2) Dissecting aneurysm of thoracic aorta, [place] type B Code(s): I71.01 - Dissection of thoracic aorta Status: Acute - Plan uncomplicated acute type B dissection Patient remains asymptomatic Blood pressure controlled Kidney function stable CTA to reevaluate dissection today. Waqar Jarrell MD [facility] [address] [phone]
--- NOTE | 2018-05-18 15:05 | P.PNIM ---
Subjective Interval history: Pt in no acute distress. No complaints from the patient. Physical Exam Vital signs: Vital Signs 05/17/18 16:00 05/17/18 17:00 05/17/18 17:47 Temperature Pulse Rate 59 L 54 L 57 L Respiratory Rate Blood Pressure Pulse Oximetry 05/17/18 17:49 05/17/18 19:00 05/17/18 20:00 Temperature 98 F Pulse Rate 65 70 Respiratory Rate 18 16 Blood Pressure 187/88 H Pulse Oximetry 97 05/17/18 21:00 05/17/18 22:00 05/17/18 23:00 Temperature 97.8 F Pulse Rate 76 64 54 L Respiratory Rate 16 Blood Pressure 167/80 H Pulse Oximetry 97 05/18/18 00:00 05/18/18 01:00 05/18/18 02:00 Temperature Pulse Rate 58 L 60 60 Respiratory Rate Blood Pressure Pulse Oximetry 05/18/18 03:00 05/18/18 04:00 05/18/18 05:00 Temperature 98.9 F Pulse Rate 64 56 L 58 L Respiratory Rate 16 Blood Pressure 134/74 Pulse Oximetry 95 05/18/18 06:00 05/18/18 07:00 05/18/18 08:00 Temperature 97.9 F Pulse Rate 58 L 57 L 61 Respiratory Rate 18 Blood Pressure 178/84 H Pulse Oximetry 98 05/18/18 09:00 05/18/18 10:00 05/18/18 10:06 Temperature Pulse Rate 59 L 65 Respiratory Rate 18 Blood Pressure Pulse Oximetry 05/18/18 11:00 05/18/18 11:40 05/18/18 13:00 Temperature 98.2 F Pulse Rate 65 66 65 Respiratory Rate 18 Blood Pressure 136/63 Pulse Oximetry 95 Intake & Output 05/17/18 05/18/18 05/18/18 18:59 06:59 18:59 Intake Total 1525 / 1525 1720 / 1720 1000 / 1000 Output Total 1550 / 1550 Balance 1525 / 1525 170 / 170 1000 / 1000 Weight 90.8 kg Intake: IV 1000 / 1000 1000 / 1000 NS Inj 1,000 ML @ 125 mls/hr IV 1000 / 1000 1000 / 1000 .SIG .Q8H [facility] Rx#:[id number] Oral 1525 / 1525 720 / 720 Output: Urine 1550 / 1550 Other: # Voids 8 Date of Last Bowel Movement 05/17/18 05/17/18 05/18/18 # Bowel Movements 1 Narrative: alert and oriented x 3 S1S2 CTA b/l Abd soft, normal bowel sounds, no abd pain no edema of exts patient is ambulatory, no neuro deficits. Results Labs CBC & Chem 7: 05/15/18 03:30 05/18/18 07:07 Assessment and Plan Plan Mr. Dickey is a pleasant 53 year old male with a history of hypertension, dyslipidemia recently diagnosed type B aortic dissection (on 05/04/18) who presented to the emergency department on 05/09/2018 due to elevated BP and back pain. He was recently diagnosed with type B extensive aortic dissection at [facility] but he left AMA. Upon arrival at [place], his BP Was 227/103 and he was admitted to ICU and started on Cardene drip. Vascular surgery was consulted. 1. Hypertensive urgency On norvasc 10mg daily, increase Hydralazine 50 mg tid, Labetalol 400mg bid, Clonidine 0.2mg bid. BP better controlled today. Continue to monitor 2. Type B aortic dissection 3. CARLOS Vascular surgery following, CTA today ordered. I will discuss the plan with vasc surgery after the imaging study is done. Cr 1.5 as of today. on ivf, LR lisinopril on hold. Heparin for dvt prophylaxis. Progress Note: Quality VTE Deep Vein Thrombosis/Pulmonary Embolism Present on Admission: No
--- NOTE | 2018-05-18 18:51 | CT ---
EXAM DATE: 05/18/2018 6:39 PM EST AGE/SEX: 53 years / Male INDICATIONS: Evaluate for dissection. CLINICAL DATA: This is the patient's initial encounter. Patient reports that signs and symptoms have been present for 1 day and indicates a pain score of 0/10. MEDICAL/SURGICAL HISTORY: Hypertension. . hernia repair RADIATION DOSE: 20.54 CTDI (mGy) ; Patient body habitus COMPARISON: [facility] [place], CTA THOR ABD AORTA W CONTRAST W 3D, 05/09/2018. . TECHNIQUE: Volumetric scanning was performed using a multi-row detector CT scanner during bolus infu yfn of 100 ml Omnipaque 350 (iohexol) nonionic water-soluble contrast as a single exam dose. The d shelby was post processed with a variety of visualization algorithms including full volume maximum inten sity projection, multi-planar sliding thin slab reformation, curved planar reformation, and surface r endering techniques. Using automated exposure control and adjustment of the mA and/or kV according t o patient size, radiation dose was kept as low as reasonably achievable to obtain optimal diagnostic quality images. DICOM format image data is available electronically for review and comparison. FINDINGS: Angiographic Findings: Ascending: Normal in [place] without evidence for dissection. Arch: Normal 3 vessel arch anatomy. Proximal arch vessels are patent. Arch is normal in caliber. Descending: There is an aortic dissection which begins just beyond the origin of the left subclavian artery and extends to the distal left common iliac artery. Similar to prior exam the true lumen is di minutive in the thoracic aorta. Overall appearance is unchanged from previous exam. Abdominal Aorta: True lumen remains diminutive in the abdominal aorta and is progressively smaller d istally at the bifurcation in comparison to previous exam. Iliacs: Very diminutive caliber true lumen at the aortic bifurcation extending to the left common tato ac artery. True lumen occludes in the mid left common iliac artery. The left external iliac and femor al arteries are supplied by the false lumen. Renal Arteries: Single bilateral renal arteries. Right renal artery arises from the true lumen. Left renal artery also arises from the true lumen with moderate to severe stenosis at the origin. Mesenteric Arteries: Celiac and SMA arise from the true lumen. LUBNA arises from the false lumen. General Findings: LUNGS: Mild groundglass opacities at the lung bases bilaterally. PLEURA: No effusion, significant pleural thickening or pneumothorax. MEDIASTINUM: Heart is unremarkable without pericardial effusion.No evidence of mediastinal or hilar adenopathy. LIVER: Mild diffusely decreased hepatic attenuation without significant volume loss or intrahepatic ductal dilatation. SPLEEN: Normal in size. PANCREAS: Unremarkable without mass or calcification. KIDNEYS: Stable indeterminate density cystic lesion measuring 2.1 cm in the mid right kidney with fo warren calcification in the posterior wall. Stable cyst in the inferior pole of the right kidney measuri ng 3.2 cm. Additional subcentimeter cystic lesions are too small to fully characterize. Kidneys other perdomo demonstrate symmetrical enhancement without hydronephrosis. ADRENAL GLANDS: Unremarkable. BOWEL/MESENTERY: Moderate sigmoid and scattered colonic diverticulosis without significant inflammat ory change. Bowel loops are normal in caliber without evidence for obstruction. No free fluid or drai nable fluid collections. No free air or pneumatosis. ABDOMINAL WALL: Intact. Small fat-containing bilateral inguinal hernias. RETROPERITONEUM: No evidence of adenopathy in the retrocrural, para-aortic, or deep pelvic regions. BLADDER: Contours are smooth. REPRODUCTIVE: No abnormal masses or calcifications seen. BONY STRUCTURES: Unremarkable. CONCLUSION: 1. Redemonstration of [place] type B aortic dissection with progressively more definitive true lume n caliber in the distal aorta extending to the left common iliac artery. See above discussion. 2. Stable 2.1 cm indeterminate density cystic lesion in the mid right kidney containing focal calcif ication in the posterior wall. 3. Stable additional ancillary findings, as above. Electronically signed by: Shoaib De Los Santos MD Board Certified Radiologist 05/18/2018 6:50 PM EST
[2018-05-19] MEDS: Heparin - SQ 10,000 UNITS/ML Vial SQ SCH ×2 (02:41→06:22)
[2018-05-19] MEDS: Morphine Inj 4 MG/ML Vial IV.PUSH PRN (08:16)
[2018-05-19] MEDS: Senna/Docusate Sodium 8.6/50 MG Tablet PO SCH (08:17)
[2018-05-19] MEDS: Labetalol 200 MG Tablet PO SCH (08:17)
[2018-05-19] MEDS: hydrALAZINE 50 MG Tablet PO SCH (08:17)
[2018-05-19] MEDS: amLODIPine 5 MG Tablet PO SCH (08:18)
--- NOTE | 2018-05-19 09:51 | P.PNVS ---
Subjective Subjective/Hospital Course: BP controlled denies pain Objective Vital Signs / I&O: Vital Signs 05/18/18 10:00 05/18/18 10:06 05/18/18 11:00 Temperature 98.2 F Pulse Rate 65 65 Respiratory Rate 18 18 Blood Pressure 136/63 Pulse Oximetry 95 05/18/18 11:40 05/18/18 13:00 05/18/18 14:00 Temperature Pulse Rate 66 65 71 Respiratory Rate Blood Pressure Pulse Oximetry 05/18/18 15:00 05/18/18 15:49 05/18/18 16:00 Temperature 98.0 F Pulse Rate 69 63 Respiratory Rate 18 Blood Pressure 146/70 H Pulse Oximetry 97 96 05/18/18 16:21 05/18/18 17:00 05/18/18 18:00 Temperature Pulse Rate 66 65 Respiratory Rate 18 Blood Pressure Pulse Oximetry 05/18/18 19:00 05/18/18 20:00 05/18/18 21:00 Temperature 97.9 F Pulse Rate 62 64 58 L Respiratory Rate 18 Blood Pressure 172/77 H Pulse Oximetry 96 05/18/18 22:00 05/18/18 23:00 05/19/18 00:00 Temperature 97.9 F Pulse Rate 72 67 62 Respiratory Rate 16 Blood Pressure 158/72 H Pulse Oximetry 96 05/19/18 01:00 05/19/18 02:00 05/19/18 03:00 Temperature 98 F Pulse Rate 60 66 73 Respiratory Rate 16 Blood Pressure 164/63 H Pulse Oximetry 95 05/19/18 04:00 05/19/18 05:00 05/19/18 06:00 Temperature Pulse Rate 74 62 64 Respiratory Rate Blood Pressure Pulse Oximetry 05/19/18 07:00 Temperature Pulse Rate 56 L Respiratory Rate Blood Pressure Pulse Oximetry Intake & Output 05/18/18 05/19/18 05/19/18 18:59 06:59 18:59 Intake Total 3225 / 3225 1480 / 1480 1000 / 1000 Output Total 2150 / 2150 Balance 3225 / 3225 -670 / -670 1000 / 1000 Weight 90.3 kg Intake: IV 1999 / 1999 1000 / 1000 1000 / 1000 LR 1000 mL Inj 1,000 ML @ 84 1000 / 1000 1000 / 1000 mls/hr IV.CONT .[id number] [facility] Rx# :[id number] NS Inj 1,000 ML @ 125 mls/hr IV 1999 .SIG .Q8H [facility] Rx#:[id number] Oral 1225 / 1225 480 / 480 Output: Urine 2150 / 2150 Other: # Voids 5 Date of Last Bowel Movement 05/18/18 05/18/18 # Bowel Movements 1 Physical Exam: abdomen soft Impressions Thoracic Aorta CT 05/18/18 00:00 CONCLUSION: 1. Redemonstration of [place] type B aortic dissection with progressively more definitive true lumen caliber in the distal aorta extending to the left common iliac artery. See above discussion. 2. Stable 2.1 cm indeterminate density cystic lesion in the mid right kidney containing focal calcification in the posterior wall. 3. Stable additional ancillary findings, as above. Assessment and Plan - Assessment (1) Hypertensive crisis Code(s): I16.9 - Hypertensive crisis, unspecified Status: Acute (2) Dissecting aneurysm of thoracic aorta, [place] type B Code(s): I71.01 - Dissection of thoracic aorta Status: Acute - Plan uncomplicated acute type B dissection Patient remains asymptomatic Blood pressure controlled Kidney function improving CTA show stable type B dissection Patient is cleared for discharge from vascular surgery standpoint FU in one months with a repeat CTA CAP Waqar Jarrell MD [facility] [phone]
[2018-05-19 10:30] VITALS: O2SAT 97
[2018-05-19] MEDS ORDERED: hydrALAZINE 50 MG Tablet PO SCH (11:09)
[2018-05-19 11:19] VITALS: BP 145/69; PULSE 65; RESP 18; TEMP 98.6
--- NOTE | 2018-05-19 11:23 | P.DS ---
DS: Providers Date of admission: 05/09/18 23:32 Primary care physician: No Primary Care Physician Consults: 05/09/18 23:56 Consult to Cardiothoracic Surgery Routine Consulting Provider: Amarilys Uriostegui Reason for Consultation: Type B dissection Spoke with:: adding to list - courtesy call in AM Date Notified:: 05/10/18 Time Notified:: 01:16 Ordering Provider: DEAN 05/15/18 08:05 Consult to Hospitalist Routine Consulting Provider: Call Back Reason for Consultation: manage HTN, CARLOS Notified:: Service Spoke with:: Radha Date Notified:: 05/15/18 Time Notified:: 08:20 Comments:: waiting on assignment - ML // Eh Ojeda at [facility] office this patient is being followed by flavor extractor, [facility] will not accept. I left message for Dr Jarrell to call in so he can cancel consult - ML Ordering Provider: AGUS Brief History from admission: Patient is 53-year-old male here with past medical history significant for hypertension, dyslipidemia recently diagnosed type B aortic dissection (on ) who presented to the emergency department today for evaluation of elevated blood pressure, and back pain. The patient stated that he was admitted to the [facility] from 05/04/18 for similar complaints and had been diagnosed with hypertensive emergency and type B dissection of the aorta. [facility] from [facility] reviewed, CT of the chest abdomen pelvis showed aortic dissection involving the thoracic and abdominal aorta extending from distal arch, distal to the origin of left subclavian artery to the left common iliac artery. CT surgery was consulted at [facility] and recommended medical management. He left AMA yesterday because in his opinion his blood pressure and pain was not adequately controlled. Initial blood pressures in the ED was 227/103. Patient was given 20 mg IV labetalol. Because of uncontrolled hypertension and recent type B dissection critical care medicine was requested to admit the patient. I evaluated the patient in the ED. His blood pressure is slightly better controlled however patient appears in obvious discomfort due to pain. He will be admitted to the ICU started on Cardene infusion along with PRN and scheduled labetalol. Cardiothoracic surgery will be reconsulted after getting aortic CT angiogram repeated. DS: Summary Mr. Dickey is a pleasant 53 year old male with a history of hypertension, dyslipidemia recently diagnosed type B aortic dissection (on 05/04/18) who presented to the emergency department on 05/09/2018 due to elevated BP and back pain. He was recently diagnosed with type B extensive aortic dissection at [facility] but he left AMA. Upon arrival at [place], his BP Was 227/103 and he was admitted to ICU and started on Cardene drip. Vascular surgery was consulted. 1. Hypertensive urgency Patient initially was in the ICU on a cardene drip. Titrated off. On norvasc 10mg daily, increased Hydralazine 75 mg tid, Labetalol 400mg bid, Clonidine 0.2mg bid. BP better controlled today. Currently sbp in the 140s Scripts given to the patient prior to his discharge today. He was advised to obtain a blood pressure monitor and take his bp at home. He should log the blood pressure and present it to his primary care doctor for close bp monitoring. He understands these instructions and understands the risk of uncontrolled blood pressure including a stroke, heart attack, or aortic dissection. 2. Type B aortic dissection 3. CARLOS Vascular surgery has cleared the patient for discharge today. He can follow up with [facility] surgery after discharge in one to two weeks. Cr 1.5 as of yesterday. Follow up outpt renal panel during next clinic visit 1- 2 weeks. If still elevated i recommend follow up with a sandwich machine operator as pt may have baseline ckd. lisinopril on hold. Patient will be discharged home today. Time Spent with Patient Total time spent providing and/or coordinating discharge services: Greater than 30 minutes Quality: VTE Deep Vein Thrombosis/Pulmonary Embolism Present on Admission: No Exam Narrative Exam Narrative: alert and oriented x 3 S1S2 CTA b/l Abd soft, normal bowel sounds, no abd pain no edema of exts patient is ambulatory, no neuro deficits. Results Impressions ITS Impressions Thoracic Aorta CT 05/18/18 00:00 CONCLUSION: 1. Redemonstration of [place] type B aortic dissection with progressively more definitive true lumen caliber in the distal aorta extending to the left common iliac artery. See above discussion. 2. Stable 2.1 cm indeterminate density cystic lesion in the mid right kidney containing focal calcification in the posterior wall. 3. Stable additional ancillary findings, as above. Discharge Plan Discharge Disposition Patient Disposition: Discharge Home Discharge Condition Condition: Stable Discharge Order Discharge Orders: Discharge Order (Routine); Ordered 05/19/18 Ordered By: Morris Zapata Physicians Team ED Provider: Gui Almendarez Primary Care Provider: Primary Care Lola Ayala Attending Provider: Morris Zapata Other Providers: Amarilys Uriostegui Rxs /Orders / Referrals /Forms Prescriptions: New labetalol 200 mg Tablet 400 mg PO BID Qty: 60 RF: 1 amlodipine [Norvasc] 5 mg Tablet 10 mg PO DAILY Qty: 30 RF: 1 clonidine HCl [Catapres] 0.2 mg Tablet 0.2 mg PO Q12HR Qty: 60 RF: 1 hydralazine 50 mg Tablet 75 mg PO TID Qty: 90 RF: 1 hydrocodone-acetaminophen [[place]] 5-325 mg tablet 1 tab PO Q8H PRN (Reason: pain (scale score 7-10)) Qty: 12 RF: 0 No Action No Known Home Medications RF: 0 Referrals: [facility] [Outside] - See Instructions Waqar Jarrell MD [Physician] - See Instructions (Your follow up appointment w/ a surveillance CTA C/A/P is scheduled on at 1:00 Please obtain your CTA prior to your follow up appointment ) Primary Care Lola Ayala [Primary Care Provider] - See Instructions Discharge Instructions Additional Instructions: Patient advised to monitor his BP at home and get a blood pressure monitor. He should check his bp at home and log it in a chart. He was advised to present the chart to his pcp in order to monitor and adjust his bp meds. Discharge Interventions Interventions: Discharge Planning - Case Management Last Done: 05/16/18 14:16 Status ED Status: Left Department
[2018-05-19] MEDS ORDERED: hydrALAZINE 25 MG Tablet PO SCH (11:45)
== END 2018-05-19 11:57 | disposition home or self-care (01) | DRG 304 ==
LOC: NEPE 20:06 → NEDA 23:32 → HCVI 05-10 00:31 → HCPC 05-15 11:44
PROVIDERS: ADMIT Hospitalist; ATTEND Hospitalist
CPT/HCPCS: 71275; 74175; 80048; 80053; 80069; 80307; 81001; 82550; 82552; 83605; 83690; 83735; 84100; 84484; 85025; 85610; 85730; 87641; 90774; 90776; 90784; 93005; 94150; 96374; 96376; 97162; 99291; C8952; J0360; J1644; J2270; J7030; J7040; J7050; J7120; Q9967